=== PATIENT | female | born 1955 | race Caucasian/White ===

== ENCOUNTER 2020-05-15 01:50 | Emergency (ER) | payer OTHER ==
[2020-05-15 04:12] LABS: Absolute Lymphocytes (CBC) 1.1 K/uL (0.7-4.9); Basophils % 0.2 % (0-1.3); Hematocrit 32.8 % (36.0-45.0); Lymphocytes % 7.2 % (15.3-44.8); MPV 9.4 fL (7.6-11.3); RBC Red Blood Cell Count 3.47 M/uL (3.86-4.86)
[2020-05-15 04:24] LABS: Protime INR 0.89
[2020-05-15 04:30] LABS: ALT/SGPT 29 U/L (12-78); AST/SGOT 13 U/L (15-37); Albumin 3.1 g/dL (3.4-5.0); Alkaline Phosphatase 123 U/L (45-117); BUN Blood Urea Nitrogen 30 mg/dL (7-18); Bicarbonate 30 mmol/L (21-32); Bilirubin Direct 0.2 mg/dL (0-0.2); Bilirubin Total 0.5 mg/dL (0.2-1.0); CKMB Creatine Kinase MB < 1.0 ng/mL (0.3-3.6); Creatine Phosphokinase 13 U/L (26-192); Glucose Level 201 mg/dL (74-106); Lipase 207 U/L (73-393); Magnesium 2.2 mg/dL (1.8-2.4); Potassium 3.3 mmol/L (3.5-5.1); Protein, Total 6.5 g/dL (6.4-8.2); Sodium Level 137 mmol/L (136-145); Troponin (Emerg Dept Use Only) < 0.02 ng/mL (0.0-0.045)
[2020-05-15 04:51] LABS: Blood Morphology Comment NOTED (NOT SEEN); Platelet Estimate ADEQ; Polychromasia SLIGHT
[2020-05-15 05:42] LABS: Urine Blood NEGATIVE (NEG); Urine Glucose 2+ (NEG); Urine Protein 1+ (NEG); Urine Specific Gravity 1.015 (1.005-1.030)
--- NOTE | 2020-05-15 06:12 | ER ---
Nurse's Notes [facility] Name: Lisa Jones Age: 65 yrs Sex: Female : 1955 Arrival Date: 05/15/2020 Time: 02:04 Bed 19 Private MD: Diagnosis: Delirium Presentation: 05/15 01:50 Chief complaint: EMS states: From [facility] via [facility] for altered sf mental status. Staff at the facility report the patient "just isn't acting herself" staring this evening. Coronavirus screen: Client denies travel out of the [place] in the last 14 days. At this time, the client does not indicate any symptoms associated with coronavirus-19. The client reports previous COVID testing was negative. Ebola Screen: Patient negative for fever greater than or equal to 101.5 degrees Fahrenheit, and additional compatible Ebola Virus Disease symptoms Patient denies exposure to infectious person. Patient denies travel to an Ebola-affected area in the 21 days before illness onset. No symptoms or risks identified at this time. Initial Sepsis Screen: Does the patient meet any 2 criteria? No. Patient's initial sepsis screen is negative. Does the patient have a suspected source of infection? No. Patient's initial sepsis screen is negative. Risk Assessment: Do you want to hurt yourself or someone else? Patient reports no desire to harm self or others. Onset of symptoms was May 14, 2020. 01:50 Method Of Arrival: EMS: [facility] sf 01:50 Acuity: LORIN 3 sf Historical: - Allergies: 02:24 Heparin; sf 02:24 metformin; sf 02:24 Keflex; sf 02:24 Zosyn; sf 02:24 Sulfa (Sulfonamide Antibiotics); sf - Home Meds: 02:24 amlodipine 10 mg tab 1 tab once daily [Active]; carvedilol 6.25 mg oral tab 1 tab 2 sf times per day [Active]; dorzolamide-timolol (PF) ophthalmic ophthalmic 1 drop 2 times per day [Active]; duloxetine 30 mg oral cpDR 3 caps once daily [Active]; Fluocinolone Acetonide 0.05% oint Topical every shift [Active]; folic acid 800 mcg Oral tab 1 tab once daily [Active]; gabapentin 300 mg oral cap 2 caps 3 times per day [Active]; Humalog Pen Sub-Q 9 unit three times a day [Active]; Lantus 100 unit/mL Sub-Q soln 20 unit nightly [Active]; melatonin 5 mg Oral tab 10 mg nightly [Active]; pantoprazole 40 mg oral TbEC 1 tab once daily [Active]; Plavix 75 mg Oral tab 1 tab once daily [Active]; prednisone 20 mg Oral tab once daily [Active]; Prolensa 0.07 % ophthalmic drop 1 drop twice a day [Active]; Renvela 800 mg oral tab 2 tabs 3 times per day [Active]; tramadol 50 mg Oral tab 1 tab every 6 hours [Active]; trazodone 50 mg Oral tab 1 tab nightly [Active]; - 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 - Social history:: Smoking status: Patient denies any tobacco usage or history of. Patient/guardian denies using alcohol, street drugs, IV drugs. Screenin:50 Abuse screen: Denies threats or abuse. Denies injuries from another. Nutritional sf screening: No deficits noted. Tuberculosis screening: No symptoms or risk factors identified. Never had TB. Possible symptoms: None Risk factors: None. Fall Risk Fall in past 12 months (25 points). Secondary diagnosis (15 points) impaired mobility, IV access (20 points). Ambulatory Aid- Crutches/Cane/Walker (15 pts). Gait- Impaired (20 pts.). Mental Status- Oriented to own ability (0 pts). Total Geller Fall Scale indicates High Risk Score (45 or more points). Fall prevention measures have been instituted. Side Rails Up X 2 Placed Close to Nursing Station Frequent Obs/Assessments Occuring. Assessment: 01:50 General: Appears in no apparent distress. comfortable, Behavior is calm, cooperative, sf appropriate for age. Pain: Denies pain. Neuro: Level of Consciousness is awake, alert, obeys commands, Oriented to person, place, time, situation, Appropriate for age. Cardiovascular: No deficits noted. Patient's skin is warm and dry. Rhythm is sinus rhythm. Respiratory: No deficits noted. Airway is patent Respiratory effort is even, unlabored, Respiratory pattern is regular, symmetrical. 04:55 Reassessment: Patient appears in no apparent distress at this time. No changes from previously documented assessment. Patient and/or family updated on plan of care and expected duration. Pain level reassessed. Patient is alert, oriented x 3, equal unlabored respirations, skin warm/dry/pink. 05:56 Reassessment: Patient appears in no apparent distress at this time. No changes from sf previously documented assessment. Patient and/or family updated on plan of care and expected duration. Pain level reassessed. Patient is alert, oriented x 3, equal unlabored respirations, skin warm/dry/pink. 06:19 Reassessment: Patient and/or family updated on plan of care and expected duration. Pain sf level reassessed. Patient called out to nurses station stating she can hear people talking about her. Saying she has been with 17 men and hangs out at the corner bar. She is alert and oriented to self, place and situation, gives 2011 as year. Reoriented patient and told her I was going to call report back to the nursing facility and arrange transport. She is content with the plan. Vital Signs: 01:50 BP 157 / 71; Pulse 69; Resp 18; Temp 98.3; Pulse Ox 99% ; Weight 72.57 kg; Height 5 ft. sf 2 in. (157.48 cm); Pain 0/10; 02:00 BP 155 / 66; Pulse 64; Resp 16; Pulse Ox 98% ; sf 02:15 BP 155 / 65; Pulse 64; Pulse Ox 98% ; sf 02:45 BP 161 / 67; Pulse 67; Resp 16; Pulse Ox 98% ; sf 03:00 BP 161 / 73; Pulse 64; Pulse Ox 98% ; sf 04:00 BP 130 / 84; Pulse 65; Resp 16; Pulse Ox 98% on R/A; sf 05:00 BP 109 / 80; Pulse 70; Resp 16; Pulse Ox 97% ; sf 01:50 Body Mass Index 29.26 (72.57 kg, 157.48 cm) ED Course: 01:50 Arm band placed on right wrist. sf 01:50 Patient has correct armband on for positive identification. Bed in low position. Call light in reach. Side rails up X2. monitoring engineer on. Pulse ox on. NIBP on. Door closed. Noise minimized. Visitors limited. Lights dimmed. Warm blanket given. Verbal reassurance given. 02:04 Patient arrived in ED. cl3 02:04 Houston Hill, RN is Primary Nurse. sf 02:07 Triage completed. sf 02:10 Scott Fernandes MD is Attending Physician. tw4 02:25 CT Head Brain wo Cont Sent. sf 02:42 CT Head Brain wo Cont In Process Unspecified. EDMS 02:53 EKG done, by ED staff, reviewed by Scott Fernandes MD. sf 03:30 Missed attempt(s): 18 gauge in left antecubital area. sf 03:40 Inserted saline lock: 20 gauge in left antecubital area, using aseptic technique. sf ,using aseptic technique. by JOE Dubon with ultrasound guidance Blood collected. 04:22 Basic Metabolic Panel Sent. sf 04:30 Urine collected: straight cath specimen, clear. Speci-cath kit inserted, using sterile sf technique, 16 Fr., specimen obtained. returned clear yellow urine. Patient tolerated well. 05:19 Urine Dipstick--Ancillary (enter results) Sent. sf 05:56 Awaiting disposition. sf 06:19 No provider procedures requiring assistance completed. sf 07:04 Report given to JOE Dsouza. sf 07:32 Lianna Yanez RN is Primary Nurse. [id number] 07:40 IV discontinued, intact, bleeding controlled, No redness/swelling at site. Pressure ss dressing applied. Administered Medications: No medications were administered Outcome: 06:11 Discharge ordered by . tw4 06:29 Discharged to long-term. Report called to Laine Weber RN sf 06:29 Condition: stable 06:29 Discharge instructions given to long-term, Instructed on discharge instructions, follow up and referral plans. medication usage, Demonstrated understanding of instructions, follow-up care, medications. 07:40 Patient left the ED. ss Signatures: Dispatcher [employer] EDNC Meliza Cano RN RN ss Wadley, Terrence, MD MD [facility] Brandon Mann cl3 Houston Hill RN RN Lianna Yanez RN RN [id number] Corrections: (The following items were deleted from the chart) 02:26 01:40 Arm band placed on right wrist. sf sf 05:21 01:50 Cardiovascular: No deficits noted. Patient's skin is warm and dry. sf sf
--- NOTE | 2020-05-15 06:12 | EDPHYS ---
Physician Documentation [facility] Name: Lisa Jones Age: 65 yrs Sex: Female : 1955 Arrival Date: 05/15/2020 Time: 02:04 Bed 19 Private MD: ED Physician Scott Fernandes HPI: 05/15 04:22 This 65 yrs old Female presents to ER via EMS with complaints of Altered tw4 Mental Status. 04:22 The patient presents with decreased responsiveness. Onset: The symptoms/episode tw4 began/occurred today. Associated signs and symptoms: The patient has no apparent associated signs or symptoms. Current symptoms: In the emergency department the patient's symptoms are unchanged from the initial presentation. The patient has not experienced similar symptoms in the past. Historical: - Allergies: 02:24 Heparin; sf 02:24 metformin; sf 02:24 Keflex; sf 02:24 Zosyn; sf 02:24 Sulfa (Sulfonamide Antibiotics); sf - Home Meds: 02:24 amlodipine 10 mg tab 1 tab once daily [Active]; carvedilol 6.25 mg oral tab 1 tab 2 sf times per day [Active]; dorzolamide-timolol (PF) ophthalmic ophthalmic 1 drop 2 times per day [Active]; duloxetine 30 mg oral cpDR 3 caps once daily [Active]; Fluocinolone Acetonide 0.05% oint Topical every shift [Active]; folic acid 800 mcg Oral tab 1 tab once daily [Active]; gabapentin 300 mg oral cap 2 caps 3 times per day [Active]; Humalog Pen Sub-Q 9 unit three times a day [Active]; Lantus 100 unit/mL Sub-Q soln 20 unit nightly [Active]; melatonin 5 mg Oral tab 10 mg nightly [Active]; pantoprazole 40 mg oral TbEC 1 tab once daily [Active]; Plavix 75 mg Oral tab 1 tab once daily [Active]; prednisone 20 mg Oral tab once daily [Active]; Prolensa 0.07 % ophthalmic drop 1 drop twice a day [Active]; Renvela 800 mg oral tab 2 tabs 3 times per day [Active]; tramadol 50 mg Oral tab 1 tab every 6 hours [Active]; trazodone 50 mg Oral tab 1 tab nightly [Active]; - 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 - Social history:: Smoking status: Patient denies any tobacco usage or history of. Patient/guardian denies using alcohol, street drugs, IV drugs. ROS: 04:22 Constitutional: Negative for fever, chills, and weight loss, Eyes: Negative for injury, tw4 pain, redness, and discharge, Cardiovascular: Negative for chest pain, palpitations, and edema, Respiratory: Negative for shortness of breath, cough, wheezing, and pleuritic chest pain, Abdomen/GI: Negative for abdominal pain, nausea, vomiting, diarrhea, and constipation, Back: Negative for injury and pain, MS/Extremity: Negative for injury and deformity, Skin: Negative for injury, rash, and discoloration. 04:22 Neuro: Positive for altered mental status. Exam: 04:22 Constitutional: This is a well developed, well nourished patient who is awake, alert, tw4 and in no acute distress. Head/Face: Normocephalic, atraumatic. Chest/axilla: Normal chest wall appearance and motion. Nontender with no deformity. No lesions are appreciated. Cardiovascular: Regular rate and rhythm with a normal S1 and S2. No gallops, murmurs, or rubs. Normal PMI, no JVD. No pulse deficits. Respiratory: Lungs have equal breath sounds bilaterally, clear to auscultation and percussion. No rales, rhonchi or wheezes noted. No increased work of breathing, no retractions or nasal flaring. Abdomen/GI: Soft, non-tender, with normal bowel sounds. No distension or tympany. No guarding or rebound. No evidence of tenderness throughout. Back: No spinal tenderness. No costovertebral tenderness. Full range of motion. Skin: Warm, dry with normal turgor. Normal color with no rashes, no lesions, and no evidence of cellulitis. MS/ Extremity: Pulses equal, no cyanosis. Neurovascular intact. Full, normal range of motion. Neuro: Awake and alert, GCS 15, oriented to person, place, time, and situation. Cranial nerves II-XII grossly intact. Motor strength 5/5 in all extremities. Sensory grossly intact. Cerebellar exam normal. Normal gait. Vital Signs: 01:50 BP 157 / 71; Pulse 69; Resp 18; Temp 98.3; Pulse Ox 99% ; Weight 72.57 kg; Height 5 ft. sf 2 in. (157.48 cm); Pain 0/10; 02:00 BP 155 / 66; Pulse 64; Resp 16; Pulse Ox 98% ; sf 02:15 BP 155 / 65; Pulse 64; Pulse Ox 98% ; sf 02:45 BP 161 / 67; Pulse 67; Resp 16; Pulse Ox 98% ; sf 03:00 BP 161 / 73; Pulse 64; Pulse Ox 98% ; sf 04:00 BP 130 / 84; Pulse 65; Resp 16; Pulse Ox 98% on R/A; sf 05:00 BP 109 / 80; Pulse 70; Resp 16; Pulse Ox 97% ; sf 01:50 Body Mass Index 29.26 (72.57 kg, 157.48 cm) sf MDM: 04:22 Differential Diagnosis: CVA, hypoglycemia, intracranial bleed. Data reviewed: vital tw4 signs, nurses notes. Data reviewed: lab test result(s), radiologic studies, CT scan. Counseling: I had a detailed discussion with the patient and/or guardian regarding: the historical points, exam findings, and any diagnostic results supporting the discharge/admit diagnosis. 04:59 Patient medically screened. tw4 05:53 Data interpreted: Pulse oximetry: Interpretation: normal. tw4 06:10 Special discussion: I discussed with the patient/guardian in detail that at this point tw4 there is no indication for admission to the hospital. It is understood, however, that if the symptoms persist or worsen the patient needs to return immediately for re-evaluation. 05/15 02:10 Order name: Basic Metabolic Panel tw4 05/15 02:10 Order name: CBC with Diff; Complete Time: 04:53 tw4 05/15 04:53 Interpretation: Normal except: WBC 15.80; RBC 3.47; HGB 10.8; HCT 32.8; LYM% 7.2; HOMER% tw4 85.5; PLT 131. 05/15 02:10 Order name: Ckmb; Complete Time: 04:51 tw4 05/15 04:52 Interpretation: Within normal limits: CKMB < 1.0. tw4 05/15 02:10 Order name: CPK; Complete Time: 04:51 05/15 04:52 Interpretation: Normal except: CPK 13. 05/15 02:11 Order name: Hepatic Function; Complete Time: 04:51 05/15 04:52 Interpretation: Normal except: AST 13; ALK 123; ALB 3.1; A/G 0.9. 05/15 02:11 Order name: Lipase; Complete Time: 04:51 05/15 04:52 Interpretation: Within normal limits: LIP 207. 05/15 02:11 Order name: Magnesium; Complete Time: 04:51 05/15 04:52 Interpretation: Within normal limits: MG 2.2. 05/15 02:11 Order name: Protime (+inr); Complete Time: 04:51 05/15 04:53 Interpretation: Within normal limits: PT 10.2. 05/15 02:11 Order name: Ptt, Activated; Complete Time: 04:51 05/15 04:52 Interpretation: Abnormal: PTT 21.8. 05/15 02:11 Order name: Troponin (emerg Dept Use Only); Complete Time: 04:51 05/15 04:53 Interpretation: Within normal limits: TROPED < 0.02. 05/15 02:11 Order name: Basic Metabolic Panel; Complete Time: 04:51 EDMS 05/15 04:52 Interpretation: Normal except: K 3.3; GLUC 201; BUN 30; CRE 2.46; GFR 20. 05/15 04:13 Order name: Manual Differential; Complete Time: 04:53 EDMS 05/15 04:54 Interpretation: Normal except: LYM 9; SEGS 85. 05/15 04:48 Order name: Urine Dipstick--Ancillary (enter results) ar5 05/15 04:48 Order name: Urine Dipstick-Ancillary; Complete Time: 05:52 EDMS 05/15 02:10 Order name: CT Head Brain wo Cont 05/15 02:11 Order name: EKG; Complete Time: 02:12 05/15 02:11 Order name: Cardiac monitoring; Complete Time: 02:45 05/15 02:11 Order name: EKG - Nurse/Tech; Complete Time: 03:42 tw4 05/15 02:11 Order name: IV Saline Lock; Complete Time: 03:42 4 05/15 02:11 Order name: Labs collected and sent; Complete Time: 03:43 tw4 05/15 02:11 Order name: NPO; Complete Time: 02:25 4 05/15 02:11 Order name: O2 Per Protocol; Complete Time: 02:25 4 05/15 02:11 Order name: O2 Sat Monitoring; Complete Time: :25 4 05/15 02:11 Order name: Urine Dipstick-Ancillary (obtain specimen); Complete Time: 04:46 tw4 EC:53 Rate is 67 beats/min. Rhythm is regular. QRS Epes is Normal. ID interval is normal. QRS tw4 interval is normal. QT interval is normal. No Q waves. T waves are Normal. T waves are Peaked. No ST changes noted. Clinical impression: Normal ECG. Interpreted by me. Reviewed by me. Administered Medications: No medications were administered Disposition: 05/15/20 06:11 Discharged to Home. Impression: Delirium. - Condition is Stable. - Discharge Instructions: Delirium. - Medication Reconciliation Form, Thank You Letter, Antibiotic Education, Prescription Opioid Use, SBAR form form. - Follow up: Private Physician; When: Upon discharge from the Emergency Department; Reason: Recheck today's complaints, Continuance of care, Re-evaluation by your physician. - Problem is new. - Symptoms have improved. Signatures: Dispatcher [employer] EDDE Meliza Cano RN RN ss Scott Fernandes MD MD tw4 Houston Hill RN RN sf Corrections: (The following items were deleted from the chart) 07:40 06:11 05/15/2020 06:11 Discharged to Home. Impression: Delirium. Condition is Stable. ss Forms are Medication Reconciliation Form, Thank You Letter, Antibiotic Education, Prescription Opioid Use. Follow up: Private Physician; When: Upon discharge from the Emergency Department; Reason: Recheck today's complaints, Continuance of care, Re-evaluation by your physician. Problem is new. Symptoms have improved. tw4
[2020-05-15 08:13] VITALS: TEMP 98.3
[2020-05-15 09:00] VITALS: O2SAT 98
[2020-05-15 09:02] VITALS: BP 161/67
--- NOTE | 2020-05-15 11:01 | RAD REPORT ---
EXAM DESCRIPTION: CT - Head Brain Wo Cont - 05/15/2020 6:34 am CLINICAL HISTORY: DECLINING STATE TECHNIQUE: Contiguous axial CT images obtained through the brain without IV contrast. Coronal and sa gittal reformatted images were provided. This exam was performed according to our departmental dose-optimization program, which includes autom ated exposure control, adjustment of the mA and/or kV according to patient size and/or use of iterati ve reconstruction technique. COMPARISON: None available for comparison FINDINGS: Brain: There is mild cerebral atrophy. Bilateral periventricular and subcortical white mat ter hypodensity most likely related to chronic microvascular angiopathy. Right inferior frontal, righ t posterior parietal, right occipital and left frontal encephalomalacia compatible with remote insult . No focal mass effect. Flores-white matter differentiation is within normal limits. No hemorrhage. Ventricles: No ventriculomegaly or midline shift. Extra-axial spaces: No extra-axial collection or hemorrhage. Paranasal sinuses and mastoid air cells: Well-aerated Vessels: There is atherosclerotic disease of the internal carotid and vertebral arteries bilaterally. Bones: Unremarkable Soft tissues: Unremarkable IMPRESSION: 1. No acute hemorrhage, focal mass or acute large territory infarction. 2. Other findings as above. Electronically signed by: Dixie Leroy MD 05/15/2020 2:50 AM SWITCHBOARD MECHANIC Due to temporary technical issues with the PACS/Fluency reporting system, reports are being signed by the in house radiologists without review as a courtesy to insure prompt reporting. The interpreting radiologist is fully responsible for the content of the report.
--- NOTE | 2020-05-15 23:58 | EKG ---
Test Date: 2020-05-15 Test Time: 02:53:13 System Specialist: JORJE MEASUREMENT RESULTS: Intervals: Rate: 67 MN: 152 QRSD: 84 QT: 422 QTc: 445 [place]: P: 49 MN: 152 QRS: 38 T: 88 INTERPRETIVE STATEMENTS: Normal sinus rhythm Normal ECG No previous ECG available for comparison Electronically Signed On 05-15-20 23:57:41 IT NETWORK ENGINEER by Hill Garcia
== END 2020-05-15 07:40 | disposition home or self-care (01) ==
LOC: ER 01:50
DX: R41.0 Disorientation, unspecified (principal); E11.22 Type 2 diabetes mellitus with diabetic chronic kidney disease; N18.6 End stage renal disease; Z79.4 Long term (current) use of insulin; E78.5 Hyperlipidemia, unspecified; E03.9 Hypothyroidism, unspecified; F32.9 Major depressive disorder, single episode, unspecified; Z88.1 Allergy status to other antibiotic agents; Z88.2 Allergy status to sulfonamides; Z88.8 Allergy status to other drugs, medicaments and biological substances
CPT/HCPCS: 36415; 70450; 80048; 80076; 81003; 82550; 82553; 83690; 83735; 84484; 85025; 85610; 85730; 93005; 99284

== ENCOUNTER 2020-06-09 15:01 | Emergency (ER) | payer OTHER ==
[2020-06-09 15:44] LABS: Absolute Lymphocytes (CBC) 0.6 K/uL (0.7-4.9); Basophils % 0.3 % (0-1.3); Hematocrit 29.8 % (36.0-45.0); Lymphocytes % 7.5 % (15.3-44.8); MPV 8.4 fL (7.6-11.3); RBC Red Blood Cell Count 3.09 M/uL (3.86-4.86)
[2020-06-09] MEDS ORDERED: ONDANSETRON 4 MG/2 ML VIAL ONE (15:48)
[2020-06-09] MEDS ORDERED: MORPHINE 4 MG/ML SYR ONE (15:48)
[2020-06-09 15:52] LABS: Potassium 3.8 mmol/L (3.5-5.1)
--- NOTE | 2020-06-09 17:24 | RAD REPORT ---
EXAM DESCRIPTION: RAD - Pelvis - 06/09/2020 5:13 pm CLINICAL HISTORY: fall Fall, trauma, pain COMPARISON: No comparisons FINDINGS: The bones are osteopenic. This limits sensitivity of the radiograph. No fracture or disloc ation is evident.
--- NOTE | 2020-06-09 17:26 | RAD REPORT ---
EXAM DESCRIPTION: RAD - Femur Left - 06/09/2020 5:13 pm CLINICAL HISTORY: PAIN Fall, pain COMPARISON: None FINDINGS: Left femur and left tibia/ fibula multiple projections performed [id number] amputation noted. Mildly angulated impacted fracture of the distal metaphysis of the l eft femur is present. Vascular atherosclerosis.
--- NOTE | 2020-06-09 17:27 | RAD REPORT ---
EXAM DESCRIPTION: RAD - Femur Right - 06/09/2020 5:13 pm CLINICAL HISTORY: PAIN COMPARISON: No comparisons FINDINGS: Above the knee amputation is noted. The bones are quite demineralized. No fracture seen. V ascular calcification evident.
--- NOTE | 2020-06-09 17:44 | EDPHYS ---
Physician Documentation [facility] Name: Lisa Jones Age: 65 yrs Sex: Female : 1955 Arrival Date: 06/09/2020 Time: 15:13 Bed 23 Private MD: ED Physician Levi Casiano HPI: 06/09 15:25 This 65 yrs old Female presents to ER via EMS with complaints of Fall Injury. cp 15:25 Details of fall: The patient fell from a height, bed. Onset: The symptoms/episode cp began/occurred this morning. Associated injuries: The patient sustained left lower extremity. 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 - Social history:: Smoking status: unknown. ROS: 15:30 MS/extremity: Positive for injury or acute deformity, pain, of the left lower extremity.cp 15:30 Constitutional: Negative for fever. cp 15:30 Neck: Negative for pain with movement, pain at rest, stiffness. 15:30 Cardiovascular: Negative for chest pain. 15:30 Respiratory: Negative for shortness of breath. 15:30 Abdomen/GI: Negative for abdominal pain. 15:30 Neuro: Negative for altered mental status, headache, loss of consciousness, syncope. 15:30 All other systems are negative. Exam: 15:35 Constitutional: The patient appears in no acute distress, alert, awake, cp non-diaphoretic, non-toxic, well developed, well nourished. 15:35 Head/Face: Normocephalic, atraumatic. cp 15:35 Eyes: Periorbital structures: appear normal, Conjunctiva: normal, no exudate, no injection, Lids and lashes: appear normal, bilaterally. 15:35 Neck: C-spine: vertebral tenderness, is not appreciated, crepitus, is not appreciated, ROM/movement: is normal, is supple, without pain, no range of motions limitations. 15:35 Chest/axilla: Inspection: normal, Palpation: is normal, no crepitus, no tenderness. 15:35 Cardiovascular: Rate: normal, Rhythm: regular. 15:35 Respiratory: the patient does not display signs of respiratory distress, Respirations: normal, no use of accessory muscles, no retractions, labored breathing, is not present, Breath sounds: are clear throughout, no decreased breath sounds. 15:35 Abdomen/GI: Inspection: abdomen appears normal, Palpation: abdomen is soft and non-tender, in all quadrants. 15:35 Musculoskeletal/extremity: Extremities: grossly normal except: noted in the left knee: pain, swelling, tenderness, left below the knee amputation, noted in the right leg: no evidence of pain, right above the knee amputation. Vital Signs: 15:27 BP 145 / 68; Pulse 68; Temp 97.6; Pulse Ox 98% ; dh4 16:10 BP 102 / 85; Pulse 61; Resp 16; Pulse Ox 95% on R/A; iw 19:42 BP 128 / 70; Pulse 89; Resp 16; Pulse Ox 100% on 2 lpm NC; iw 20:49 BP 133 / 71; Pulse 58; Resp 19; Temp 97.8; Pulse Ox 96% ; Pain 0/10; fu Procedures: 18:00 Splinting: Splint applied to left leg using knee immobilizer, applied by nurse. cp Examined by me, post splint application: neurovascular intact, Patient tolerated well. MDM: 15:17 Patient medically screened. cp 16:00 Differential diagnosis: closed head injury, contusion, fracture, multiple trauma. cp 17:41 Data reviewed: vital signs, nurses notes, lab test result(s), radiologic studies, plain cp films. 17:41 Test interpretation: by ED physician or midlevel provider: plain radiologic studies. cp Counseling: I had a detailed discussion with the patient and/or guardian regarding: the historical points, exam findings, and any diagnostic results supporting the discharge/admit diagnosis, lab results, radiology results, to return to the emergency department if symptoms worsen or persist or if there are any questions or concerns that arise at home. Response to treatment: Pain markedly improved. 06/09 15:17 Order name: Basic Metabolic Panel; Complete Time: 16:28 cp 06/09 16:29 Interpretation: Normal except: GLUC 199; BUN 32; CRE 2.56; GFR 19. cp 06/09 15:17 Order name: CBC with Diff; Complete Time: 16:28 cp 06/09 19:22 Interpretation: Normal except: RBC 3.09; HGB 9.8; HCT 29.8; PLT 71; RDW 16.5; HOMER% cp 89.6; LYM% 7.5; MN% 2.5; LYMA 0.6. 06/09 15:17 Order name: XRAY Pelvis; Complete Time: 19:21 cp 06/09 15:17 Order name: XRAY Femur LEFT; Complete Time: 19:21 cp 06/09 15:17 Order name: Type And Screen; Complete Time: 16:28 cp 06/09 18:59 Order name: Glucose, Ancillary Testing; Complete Time: 19:21 EDMS 06/09 15:17 Order name: IV; Complete Time: 15:36 cp 06/09 15:17 Order name: XRAY Tib Fib LEFT cp 06/09 15:17 Order name: XRAY Femur RIGHT; Complete Time: 19:21 cp 06/09 15:17 Order name: Labs collected and sent; Complete Time: 15:36 cp 06/09 16:29 Order name: Knee Immobilizer; Complete Time: 16:43 cp Administered Medications: 15:35 Drug: morphine 4 mg Route: IVP; Site: right antecubital; iw 15:36 Drug: Zofran (Ondansetron) 4 mg Route: IVP; Site: right antecubital; iw 19:39 Drug: NARcan 0.4 mg Route: IVP; Site: right antecubital; iw 20:58 Follow up: Response: Marked relief of symptoms fu Disposition: 21:15 Chart complete. 06/10 01:21 Co-signature as Attending Physician, Levi Casiano MD I agree with the assessment and odalys plan of care. Disposition: 06/09/20 17:42 Discharged to Home. Impression: Nondisplaced Distal Left Femur Fracture. - Condition is Stable. - Discharge Instructions: Knee Fracture, Adult. - Prescriptions for Tylenol- Codeine #3 300-30 mg Oral Tablet - take 2 tablets by ORAL route every 4-6 hours As needed; 20 tablet. - SBAR form, Medication Reconciliation Form, Thank You Letter, Antibiotic Education, Prescription Opioid Use form. - Follow up: Sahil Mcgee MD; When: 2 - 3 days; Reason: left distal femur fracture. - Problem is new. - Symptoms have improved. Signatures: Dispatcher [employer] EDLevi Kerr MD MD cha Williams, Irene, RN RN Opal Lynch RN RN aa5 Levi Sewell, PA PA Fredy Medel RN RN fu Corrections: (The following items were deleted from the chart) 06/09 21:05 17:42 06/09/2020 17:42 Discharged to Home. Impression: Nondisplaced Distal Left Femur fu Fracture. Condition is Stable. Forms are Medication Reconciliation Form, Thank You Letter, Antibiotic Education, Prescription Opioid Use. Follow up: Sahil Mcgee; When: 2 - 3 days; Reason: left distal femur fracture. Problem is new. Symptoms have improved. cp
--- NOTE | 2020-06-09 17:44 | ER ---
Nurse's Notes [facility] Name: Lisa Jones Age: 65 yrs Sex: Female : 1955 Arrival Date: 06/09/2020 Time: 15:13 Bed 23 Private MD: Diagnosis: Nondisplaced Distal Left Femur Fracture Presentation: 06/09 15:13 Chief complaint: EMS states: fell out of bed this morning around 0730, pt c/o left knee aa5 pain, x-rays were completed at [facility] and results are as follow: fracture involving left distal femur with displacement. Pt is A\T\O x 2-3 which is baseline as [facility]. Care prior to arrival: None. Mechanism of Injury: Fall out of bed. Trauma event details: Injury occurred in the [facility], Injury occurred: at home. 15:13 Acuity: LORIN 3 aa5 15:13 Method Of Arrival: EMS: [facility] aa5 15:39 Coronavirus screen: At this time, the client does not indicate any symptoms associated iw with coronavirus-19. Ebola Screen: Patient negative for fever greater than or equal to 101.5 degrees Fahrenheit, and additional compatible Ebola Virus Disease symptoms Patient denies exposure to infectious person. Patient denies travel to an Ebola-affected area in the 21 days before illness onset. No symptoms or risks identified at this time. Initial Sepsis Screen: Does the patient meet any 2 criteria? No. Patient's initial sepsis screen is negative. Does the patient have a suspected source of infection? No. Patient's initial sepsis screen is negative. Risk Assessment: Do you want to hurt yourself or someone else? Patient reports no desire to harm self or others. Onset of symptoms was June 09, 2020. 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 - Social history:: Smoking status: unknown. Screenin:14 Abuse screen: Denies threats or abuse. Denies injuries from another. Tuberculosis iw screening: No symptoms or risk factors identified. 16:15 Nutritional screening: No deficits noted. Fall Risk Fall in past 12 months (25 points). iw Primary Survey: 15:20 NO uncontrolled hemorrhage observed. A: The patient is alert. Airway: patent. iw Breathing/Chest: Respiratory pattern: regular, Respiratory effort: spontaneous, unlabored. Circulation: Skin color: pink. Disability Alert. Exposure/Environment: All clothing and personal items were removed. Forensic evidence collection is not deemed to be indicated at this time. Items placed in patient belonging bag. Secondary Survey: 16:13 Musculoskeletal: Swelling present in left quadriceps and left knee. iw Assessment: 15:20 General: Appears in no apparent distress. Behavior is calm, cooperative. Pain: iw Complains of pain in left leg. Neuro: Level of Consciousness is awake, alert, obeys commands, Oriented to person, place, time, Moves all extremities. Respiratory: Respiratory effort is even, unlabored, Respiratory pattern is regular. Derm: Skin is intact, is fragile. Musculoskeletal: Range of motion: limited in left hip and left knee pt has BKA to left leg, AKA to right leg. 15:39 Reassessment: Patient appears in no apparent distress at this time. pt has been iw medicated with morphine. zofran, awaiting xrays. 17:56 Reassessment: Report given to Nicole (nurse at [facility]). Awaiting aa5 transport [facility]. . 18:43 Reassessment: pt difficult to arouse, BS was 179, respirations even and unlabored, 100% iw on 2 L NC, pt wakes up to painful stimuli, Levi Page at bedside to assess, will hold pt until more responsive. 19:41 Reassessment: administered 0.4 mg Narcan, pt still drowsy but awakens to verbal stimuli.iw 20:59 Reassessment: patient is awake responsive to verbal stimuli. O2 support discontinued, fu tolerating on room air O2 sat at 96%. 21:02 Reassessment: patient pick up attendant by [facility], report given by day shift nurse. fu patient left on stretcher. [place] [facility] Vital Signs: 15:27 BP 145 / 68; Pulse 68; Temp 97.6; Pulse Ox 98% ; dh4 16:10 BP 102 / 85; Pulse 61; Resp 16; Pulse Ox 95% on R/A; iw 19:42 BP 128 / 70; Pulse 89; Resp 16; Pulse Ox 100% on 2 lpm NC; iw 20:49 BP 133 / 71; Pulse 58; Resp 19; Temp 97.8; Pulse Ox 96% ; Pain 0/10; fu ED Course: 15:13 Patient arrived in ED. aa5 15:13 Arm band placed on. aa5 15:15 Levi Sewell PA is PHCP. cp 15:15 Levi Casiano MD is Attending Physician. cp 15:18 Triage completed. aa5 15:18 Charis Tyler, JOE is Primary Nurse. iw 15:38 Initial lab(s) drawn, by ia, sent to lab. Inserted saline lock: 24 gauge in right iw antecubital area, using aseptic technique. Blood collected. 16:00 Patient has correct armband on for positive identification. iw 17:13 XRAY Pelvis In Process Unspecified. EDMS 17:13 XRAY Femur LEFT In Process Unspecified. EDMS 17:13 XRAY Tib Fib LEFT In Process Unspecified. EDMS 17:13 XRAY Femur RIGHT In Process Unspecified. EDMS 17:41 Sahil Mcgee MD is Referral Physician. cp 20:00 No provider procedures requiring assistance completed. fu 20:50 IV discontinued, bleeding controlled, Pressure dressing applied. fu Administered Medications: 15:35 Drug: morphine 4 mg Route: IVP; Site: right antecubital; iw 15:36 Drug: Zofran (Ondansetron) 4 mg Route: IVP; Site: right antecubital; iw 19:39 Drug: NARcan 0.4 mg Route: IVP; Site: right antecubital; iw 20:58 Follow up: Response: Marked relief of symptoms fu Outcome: 17:42 Discharge ordered by MD. cp 21:02 [facility]charged to [facility]. fu 21:02 Condition: stable 21:02 Discharge instructions given to patient, Instructed on discharge instructions. 21:05 Patient left the ED. fu Signatures: Dispatcher [employer] Charis Ornelas, RN Opal aRmachandran RN RN aa5 Levi Sewell PA PA cp Umadhay, Felix, RN RN Benjamin Barba [facility]
[2020-06-09] MEDS ORDERED: NALOXONE 0.4 MG/ML VIAL ONE (19:53)
[2020-06-09 21:14] VITALS: BP 133/71; TEMP 97.8; O2SAT 96
--- NOTE | 2020-06-11 10:58 | RAD REPORT ---
EXAM DESCRIPTION: RAD - Tib Fib Left - 06/09/2020 5:13 pm CLINICAL HISTORY: PAIN Fall, pain COMPARISON: None FINDINGS: Left femur and left tibia/ fibula multiple projections performed [id number] amputation noted. Mildly angulated impacted fracture of the distal metaphysis of the l eft femur is present. Vascular atherosclerosis.
== END 2020-06-09 21:05 | disposition home or self-care (01) ==
LOC: ER 15:01
PROC: 2W3MX1Z Immobilization of Left Lower Extremity using Splint (ICD-10-PCS; principal; 2020-06-09)
DX: S72.402A Unspecified fracture of lower end of left femur, initial encounter for closed fracture (principal); W06.XXXA Fall from bed, initial encounter; Y93.9 Activity, unspecified; Y92.9 Unspecified place or not applicable; E11.22 Type 2 diabetes mellitus with diabetic chronic kidney disease; N18.6 End stage renal disease; Z88.1 Allergy status to other antibiotic agents; Z88.2 Allergy status to sulfonamides; Z88.8 Allergy status to other drugs, medicaments and biological substances; Z99.2 Dependence on renal dialysis; Z89.611 Acquired absence of right leg above knee; Z89.512 Acquired absence of left leg below knee
CPT/HCPCS: 85025; 80048; 36415; 86900; 86850; 86901; 82947; 72170; 73552 ×2; 73590; 96375; 96374; 99285; 29505; J2310; J2405

== ENCOUNTER 2020-07-06 12:13 | Observation (INO) | payer OTHER ==
[2020-07-06 13:57] LABS: Absolute Lymphocytes (CBC) 1.2 K/uL (0.7-4.9); Basophils % 0.6 % (0-1.3); Hematocrit 28.5 % (36.0-45.0); Lymphocytes % 20.3 % (15.3-44.8); MPV 7.9 fL (7.6-11.3); RBC Red Blood Cell Count 2.97 M/uL (3.86-4.86)
[2020-07-06 14:31] LABS: Albumin 2.8 g/dL (3.4-5.0); Bilirubin Direct 0.2 mg/dL (0-0.2); Bilirubin Total 0.7 mg/dL (0.2-1.0); Magnesium 2.5 mg/dL (1.8-2.4); Potassium 3.5 mmol/L (3.5-5.1)
[2020-07-06 14:33] LABS: Blood Morphology Comment NOT SEEN (NOT SEEN); Platelet Estimate DECR; White Blood Cell Scan OK (OK)
--- NOTE | 2020-07-06 15:51 | EDPHYS ---
Physician Documentation [facility] Name: Lisa Jones Age: 65 yrs Sex: Female : 1955 Arrival Date: 07/06/2020 Time: 12:16 Bed 25 Private MD: ED Physician Scott Fernandes HPI: 07/06 12:25 This 65 yrs old Female presents to ER via EMS with complaints of Altered cp Mental Status. 12:25 The patient presents with agitation. cp 12:25 Onset: The symptoms/episode began/occurred today. Possible causes: missed dialysis. cp Current symptoms: In the emergency department the patient's symptoms are unchanged from the initial presentation. Patient's baseline: Neuro: orientated to person, place, Motor: no deficits, Ambulation: unable to walk, uses wheelchair, Speech: normal. [facility] is resident of [facility] who reports patient has refused dialysis for past 1 week. Reportedly has been agitated and confused today and requesting dialysis. Historical: - Allergies: 12:24 Heparin; iw 12:24 Keflex; iw 12:24 metformin; iw 12:24 Sulfa (Sulfonamide Antibiotics); iw 12:24 Zosyn; iw - Home Meds: 12:31 amlodipine 10 mg tab 1 tab once daily [Active]; carvedilol 6.25 mg Oral tab 1 tab 2 iw times per day [Active]; dorzolamide-timolol (PF) ophthalmic ophthalmic 1 drop 2 times per day [Active]; duloxetine 60 mg oral cpDR twice a day [Active]; Fluocinolone Acetonide 0.05% Topical once daily [Active]; folic acid 800 mcg Oral tab 1 tab once daily [Active]; gabapentin 600 mg oral tab 3 times per day [Active]; Lantus Solostar 100 unit/mL (3 mL) subcutaneous inpn 20 unit nightly [Active]; melatonin 10 mg oral tab nightly [Active]; pantoprazole 40 mg Oral TbEC 1 tab once daily [Active]; Plavix 75 mg Oral tab 1 tab once daily [Active]; prednisone 10 mg oral tab once daily [Active]; Prolensa 0.07 % ophthalmic drop 1 drop twice a day [Active]; Renvela 800 mg Oral tab 2 tabs three times a day [Active]; Seroquel 25 mg Oral tab 1 tab 2 times per day [Active]; tramadol 50 mg Oral tab 1 tab every 4-6 hours [Active]; trazodone 50 mg Oral tab 1 tab nightly [Active]; - PMHx: 12:24 Anemia; Depression; Diabetes - IDDM; Dialysis; ESRD; GERD; Hyperlipidemia; iw Hypothyroidism; Psychotic disorder; 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 - Social history:: Smoking status: Smoking status: unknown. ROS: 12:30 Constitutional: Negative for fever, poor PO intake. cp 12:30 Cardiovascular: Negative for chest pain. 12:30 Respiratory: Negative for cough, wheezing. 12:30 Abdomen/GI: Negative for abdominal pain, nausea, vomiting, and diarrhea. 12:30 Neuro: Negative for altered mental status, headache. Exam: 12:35 Constitutional: The patient appears in no acute distress, alert, awake, cp non-diaphoretic, non-toxic, well developed, well nourished. 12:35 Head/Face: Normocephalic, atraumatic. cp 12:35 Eyes: Periorbital structures: appear normal, Conjunctiva: normal, no exudate, no injection, Lids and lashes: appear normal, bilaterally. 12:35 ENT: External ear(s): are unremarkable, Nose: is normal, Posterior pharynx: Airway: no evidence of obstruction, patent. 12:35 Chest/axilla: Inspection: normal, Palpation: is normal, no crepitus, no tenderness. 12:35 Cardiovascular: Rate: normal, Rhythm: regular. 12:35 Respiratory: the patient does not display signs of respiratory distress, Respirations: normal, no use of accessory muscles, no retractions, labored breathing, is not present, Breath sounds: decreased breath sounds, are not appreciated, wheezing: is not appreciated. 12:35 Abdomen/GI: Inspection: abdomen appears normal, Palpation: abdomen is soft and non-tender, in all quadrants. 12:35 Musculoskeletal/extremity: bilateral lower extremity amputations. 12:35 Neuro: Orientation: to person, place, situation, Mentation: able to follow commands. 13:22 ECG was reviewed by the Attending Physician. cp Vital Signs: 12:24 BP 125 / 82; Pulse 96; Resp 20; Temp 98.2; Pulse Ox 96% on R/A; Pain 10/10; zb 15:55 BP 93 / 76; Pulse 96; Resp 18; Pulse Ox 96% on R/A; zb 16:36 BP 109 / 78; Pulse 92; Resp 18; Pulse Ox 96% on R/A; zb 17:34 BP 147 / 80; Pulse 96; Resp 16; Pulse Ox 93% on R/A; zb 18:56 BP 135 / 98; Pulse 95; Resp 18; Pulse Ox 95% on R/A; zb MDM: 12:19 Patient medically screened. cp 12:30 Differential Diagnosis: electrolyte abnormality, sepsis. cp 14:40 Data reviewed: vital signs, nurses notes, lab test result(s). cp 14:40 Test interpretation: by ED physician or midlevel provider: ECG. cp 15:30 Physician consultation: Harry Haque DO was called at 14:45, was contacted at 15:30, cp regarding patient's condition, requests patient be admitted to services of hospitalist fo dialysis treatment. 15:45 Physician consultation: Pamela Silveira MD was called at 15:45, was contacted at 15:45, cp regarding admission, to the telemetry unit. patient's condition. 07/06 12:18 Order name: Basic Metabolic Panel 07/06 12:18 Order name: CBC with Diff; Complete Time: 15:25 07/06 14:15 Interpretation: Normal except: RBC 2.97; HGB 9.5; HCT 28.5; PLT 96; RDW 15.5. cp 07/06 12:18 Order name: Hepatic Function cp 07/06 12:18 Order name: Lipase; Complete Time: 14:33 cp 07/06 12:18 Order name: Magnesium; Complete Time: 14:33 cp 07/06 12:19 Order name: Basic Metabolic Panel; Complete Time: 14:33 EDMS 07/06 14:33 Interpretation: Normal except: CL 109; BUN 42; CRE 3.68; GFR 12. cp 07/06 12:18 Order name: EKG; Complete Time: 12:19 cp 07/06 12:19 Order name: Liver (Hepatic) Function; Complete Time: 14:33 EDMS 07/06 14:33 Interpretation: Normal except: AST 12; ALK 147; TP 6.0; ALB 2.8; A/G 0.9. cp 07/06 14:00 Order name: SARS-COV-2 RT PCR; Complete Time: 14:15 EDCO 07/06 14:33 Order name: CBC Smear Scan; Complete Time: 15:25 EDCO 07/06 16:12 Order name: Diet Renal; Complete Time: 16:13 jd3 07/06 16:50 Order name: Troponin I EDCO 07/06 16:50 Order name: Troponin I EDCO 07/06 12:18 Order name: IV Saline Lock; Complete Time: 14:01 cp 07/06 12:18 Order name: Labs collected and sent; Complete Time: 14:01 cp 07/06 12:18 Order name: EKG - Nurse/Tech; Complete Time: 13:24 cp 07/06 16:50 Order name: CONS Physician Consult EDCO EC:22 Rate is 96 beats/min. Rhythm is regular. ID interval is normal. QRS interval is normal. cp QT interval is normal. Interpreted by me. Reviewed by me. Administered Medications: No medications were administered Disposition: 16:00 Chart complete. cp Disposition: 07/06/20 15:50 Hospitalization ordered by Pamela Silveira for Observation. Preliminary diagnosis is End stage renal disease. - Bed requested for Telemetry/MedSurg (observation). - Status is Observation. zb - Condition is Stable. - Problem is chronic. - Symptoms are unchanged. Addendum: 07/11/2020 10:09 Co-signature as Attending Physician, Scott Fernandes MD I agree with the assessment and t w4 plan of care. Signatures: Dispatcher [employer] [facility] Sheila Chappell RN RN dw Williams, Irene, RN RN iw Page, Corey, PA PA Scott Fernandes MD MD tw4 Celia Retana RN RN zb Corrections: (The following items were deleted from the chart) 07/06 13:13 12:46 CORONAVIRUS+MR.LAB.BRZ ordered. [facility] 17:47 15:50 Hospitalization Ordered by Pamela Silveira MD for Observation. Preliminary dw diagnosis is End stage renal disease. Bed requested for Telemetry/MedSurg (observation). Status is Observation. Condition is Stable. Problem is chronic. Symptoms are unchanged. cp 20:26 17:47 07/06/2020 15:50 Hospitalization Ordered by Pamela Silveira MD for Observation. zb Preliminary diagnosis is End stage renal disease. Bed requested for Telemetry/MedSurg (observation). Status is Observation. Condition is Stable. Problem is chronic. Symptoms are unchanged. dw
--- NOTE | 2020-07-06 15:51 | ER ---
Nurse's Notes [facility] Name: Lisa Jones Age: 65 yrs Sex: Female : 1955 Arrival Date: 07/06/2020 Time: 12:16 Bed 25 Private MD: Diagnosis: End stage renal disease Presentation: 07/06 12:16 Chief complaint: EMS states: pt missed dialysis X 1 week, has been confused and iw combative , pt now agrees to have dialysis, normally has dialysis MWF, see Dr. Haque , pt is A\T\O X 3. Coronavirus screen: At this time, the client does not indicate any symptoms associated with coronavirus-19. Ebola Screen: Patient negative for fever greater than or equal to 101.5 degrees Fahrenheit, and additional compatible Ebola Virus Disease symptoms Patient denies exposure to infectious person. Patient denies travel to an Ebola-affected area in the 21 days before illness onset. No symptoms or risks identified at this time. Initial Sepsis Screen: Does the patient meet any 2 criteria? No. Patient's initial sepsis screen is negative. Does the patient have a suspected source of infection? No. Patient's initial sepsis screen is negative. Risk Assessment: Do you want to hurt yourself or someone else? Patient reports no desire to harm self or others. Onset of symptoms was June 29, 2020. 12:16 Method Of Arrival: EMS: [facility] iw 12:16 Acuity: LORIN 3 iw Historical: - Allergies: 12:24 Heparin; iw 12:24 Keflex; iw 12:24 metformin; iw 12:24 Sulfa (Sulfonamide Antibiotics); iw 12:24 Zosyn; iw - Home Meds: 12:31 amlodipine 10 mg tab 1 tab once daily [Active]; carvedilol 6.25 mg Oral tab 1 tab 2 iw times per day [Active]; dorzolamide-timolol (PF) ophthalmic ophthalmic 1 drop 2 times per day [Active]; duloxetine 60 mg oral cpDR twice a day [Active]; Fluocinolone Acetonide 0.05% Topical once daily [Active]; folic acid 800 mcg Oral tab 1 tab once daily [Active]; gabapentin 600 mg oral tab 3 times per day [Active]; Lantus Solostar 100 unit/mL (3 mL) subcutaneous inpn 20 unit nightly [Active]; melatonin 10 mg oral tab nightly [Active]; pantoprazole 40 mg Oral TbEC 1 tab once daily [Active]; Plavix 75 mg Oral tab 1 tab once daily [Active]; prednisone 10 mg oral tab once daily [Active]; Prolensa 0.07 % ophthalmic drop 1 drop twice a day [Active]; Renvela 800 mg Oral tab 2 tabs three times a day [Active]; Seroquel 25 mg Oral tab 1 tab 2 times per day [Active]; tramadol 50 mg Oral tab 1 tab every 4-6 hours [Active]; trazodone 50 mg Oral tab 1 tab nightly [Active]; - PMHx: 12:24 Anemia; Depression; Diabetes - IDDM; Dialysis; ESRD; GERD; Hyperlipidemia; iw Hypothyroidism; Psychotic disorder; 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 - Social history:: Smoking status: Smoking status: unknown. Screenin:23 Abuse screen: Denies threats or abuse. Denies injuries from another. Nutritional zb screening: No deficits noted. Tuberculosis screening: No symptoms or risk factors identified. Fall Risk Fall in past 12 months (25 points). Secondary diagnosis (15 points) impaired mobility, IV access (20 points). Ambulatory Aid- None/Bed Rest/Nurse Assist (0 pts). Gait- Impaired (20 pts.). Mental Status- Overestimates/Forgets Limitations (15 pts.). Total Geller Fall Scale indicates High Risk Score (45 or more points). Fall prevention measures have been instituted. Side Rails Up X 2 Placed Close to Nursing Station Frequent Obs/Assessments Occuring As available patient and family educated on Fall Prevention Program and Strategies. Assessment: 12:19 General: Appears in no apparent distress. uncomfortable, Behavior is cooperative. Pain: zb Complains of pain in right leg and left leg Pain currently is 10 out of 10 on a pain scale. Neuro: Level of Consciousness is awake, alert, confused, Oriented to person, place. Cardiovascular: Capillary refill < 3 seconds Patient's skin is warm and dry. Cardiovascular: Denies shortness of breath, Heart tones S1 S2 present Respiratory: Airway is patent Respiratory effort is even, unlabored, Respiratory pattern is regular, symmetrical, Breath sounds with crackles in right upper lobe and right middle lobe. GI: Abdomen is round right upper chest catheter for dialysis. :. Derm: Skin is intact, Skin is normal, Skin temperature is warm. Musculoskeletal: Amputation of right leg and left leg. Range of motion: intact in bilateral arms left knee immobilizer present. 13:24 Reassessment: Patient appears in no apparent distress at this time. Patient and/or zb family updated on plan of care and expected duration. Pain level reassessed. Patient is alert, oriented x 3, equal unlabored respirations, skin warm/dry/pink. 14:23 Reassessment: Patient appears in no apparent distress at this time. patient remains zb confused talking to herself and answering her own question. when asked what year patient states it 2009. 15:03 Reassessment: Reassessment: patient remains confused. states that she is ready to go zb home. and notes that the trash can is a refrigerator. 15:55 Reassessment: ecp at bedside. zb 16:36 Reassessment: Patient appears in no apparent distress at this time. Patient and/or zb family updated on plan of care and expected duration. Pain level reassessed. patient appears to be resting at this time. 17:32 Reassessment: hospitalist at bedside. zb Vital Signs: 12:24 BP 125 / 82; Pulse 96; Resp 20; Temp 98.2; Pulse Ox 96% on R/A; Pain 10/10; zb 15:55 BP 93 / 76; Pulse 96; Resp 18; Pulse Ox 96% on R/A; zb 16:36 BP 109 / 78; Pulse 92; Resp 18; Pulse Ox 96% on R/A; zb 17:34 BP 147 / 80; Pulse 96; Resp 16; Pulse Ox 93% on R/A; zb 18:56 BP 135 / 98; Pulse 95; Resp 18; Pulse Ox 95% on R/A; zb ED Course: 12:16 Patient arrived in ED. am2 12:18 Levi Sewell PA is PHCP. cp 12:18 Scott Fernandes MD is Attending Physician. cp 12:19 Celia Retana RN is Primary Nurse. zb 12:21 Triage completed. iw 12:23 Patient has correct armband on for positive identification. Bed in low position. Call zb light in reach. Side rails up X 1. Pulse ox on. NIBP on. Door closed. Noise minimized. Warm blanket given. 12:23 Arm band placed on. zb 15:00 called and left message with Dr. Haque to call Levi Bashir regarding his patient. eb 15:05 Inserted saline lock: 22 gauge in left forearm, using aseptic technique. ,using aseptic zb technique. preformed by JOE duckworth Blood collected. 15:49 Pamela Silveira MD is Hospitalizing Provider. cp Administered Medications: No medications were administered Outcome: 15:50 Decision to Hospitalize by Provider. cp 19:52 Admitted to Med/surg room 215, with chart, Report called to JOE Cano lp1 19:52 Condition: stable 20:26 Patient left the ED. zb Signatures: Charis Tyler RN JOE iw Alma Krishna RN RN lp1 Levi Sewell PA PA cp Ritika Andujar Elizabeth eb Brown, Zipporah, RN RN zb Corrections: (The following items were deleted from the chart) 15:04 14:01 Reassessment: zdavid zb
[2020-07-06] MEDS ORDERED: ALBUTEROL 2.5 MG/3 ML NEB SOL NEB PRN (16:46)
[2020-07-06] MEDS ORDERED: MORPHINE 2 MG/ML SYR IV PRN (16:46)
[2020-07-06] MEDS ORDERED: ONDANSETRON 4 MG/2 ML VIAL IV PRN (16:46)
--- NOTE | 2020-07-06 16:59 | P.HP ---
Certification for Inpatient Patient admitted to: Observation With expected LOS: <2 Midnights Patient will require the following post-hospital care: None Practitioner: I am a practitioner with admitting privileges, knowledge of patient current condition, hospital course, and medical plan of care. Services: Services provided to patient in accordance with Admission requirements found in Title 42 Section 412.3 of the Code of Federal Regulations Patient History Date of Service: 07/06/20 Reason for admission: NEED FOR DIALYSIS History of Present Illness: 65-year-old usp patient with history of depression, ESRD on hemodialysis follows with Dr. Kraft presented after refusing dialysis for a week but now agreeable to dialysis. She was initially reportedly combative and confused . Nephrology has been consulted and will be starting her back on dialysis tonight . She has been admitted for observation . She denies any symptoms at this time except for fatty. She denies any cough, shortness of breath - Past Medical/Surgical History -: Anemia; Depression; Diabetes - IDDM; Dialysis; ESRD; GERD; Hyperlipidemi -: b/l BKA - Social History Counseled patient to stop smoking for: less than 10 minutes Smoking therapy provided: No Patient receptive to therapy: No Alcohol use: No CD- Drugs: No Caffeine use: No Place of Residence: [place] Review of Systems is unable to be obtained Physical Examination - Physical Exam General: Alert, In no apparent distress, Oriented x3, Confused HEENT: Atraumatic, Normocephalic, PERRLA Neck: Supple, 2+ carotid pulse no bruit, JVD not distended Respiratory: Diminished, Crackles/rales Cardiovascular: Regular rate/rhythm, Normal S1 S2 Gastrointestinal: Normal bowel sounds, Soft and benign, Non-distended Musculoskeletal: No clubbing, No swelling, Other (b/l BKA) Neurological: Normal speech - Studies Laboratory Data (last 24 hrs) 07/06/20 13:50: WBC 5.90, Hgb 9.5 L, Hct 28.5 L, Plt Count 96 L 07/06/20 13:50: Sodium 144, Potassium 3.5, BUN 42 H, Creatinine 3.68 H, Glucose 85, Magnesium 2.5 H, Total Bilirubin 0.7, AST 12 L, ALT 13, Alkaline Phosphatase 147 H, Lipase 29 L Imagings Data: CXR - mild pulmonary edema Assessment and Plan - Problems (Diagnosis) (1) ESRD (end stage renal disease) on dialysis Current Visit: Yes Status: Acute (2) Diabetes Current Visit: Yes Status: Acute (3) HTN (hypertension) Current Visit: Yes Status: Acute - Advance Directives Does patient have a Living Will: No Does patient have a Durable POA for Healthcare: No Physician Review: Patient Assessed, Agree with Above Assessment and Plan Physician Review Additional Text: Impression/plan ESRD-resume hemodialysis today Might need repeat HD in a.m. although creatinine mildly elevated. 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
[2020-07-06] MEDS ORDERED: GLUCAGON 1 MG/VIAL IM PRN (17:05)
[2020-07-06] MEDS ORDERED: HYDRALAZINE HCL 20 MG/ML VIAL IV PRN (17:05)
[2020-07-06] MEDS ORDERED: D50W 25 GM/50 ML VIAL IV PRN (17:50)
[2020-07-06] MEDS: INSULIN -REGULAR HUMAN 50 UNIT/0.5 ML ML SQ SCH (21:00)
[2020-07-06 21:59] VITALS: BMI 28.0
--- NOTE | 2020-07-06 22:04 | P.CNS ---
Date of Consult: 07/06/20 Reason for Consult: ESRD Requesting Physician: Pamela Silveira Chief Complaint: NEED FOR DIALYSIS History of Present Illness: 65 yo WF CKD, HTN presented to the ER after missing several dialysis sessions with AMS. The [facility] reports that she has been having more psych issues lately. She states that going to dialysis is a pain in the butt. +Appetite +Weakness +Fatigue Allergies No Known Allergies Allergy (Unverified 07/06/20 22:08) Home medications list reviewed: Yes - Past Medical/Surgical History Diabetic: Yes -: Anemia; Depression; Diabetes - IDDM; Dialysis; ESRD; GERD; Hyperlipidemi -: b/l BKA - Social History Smoking Status: Unknown if ever smoked Alcohol use: No CD- Drugs: No Caffeine use: No Place of Residence: [facility] Review of Systems 10-point ROS is otherwise unremarkable General: Weakness, Malaise Respiratory: SOB with Excertion Neurological: Weakness Physical Examination Temp Pulse Resp BP Pulse Ox 98.2 F 95 H 18 135/98 H 07/06/20 12:24 07/06/20 18:56 07/06/20 18:56 07/06/20 18:56 General: In no apparent distress, Cooperative HEENT: Atraumatic Neck: Supple Respiratory: Diminished Cardiovascular: Regular rate/rhythm, Edema Gastrointestinal: Soft and benign, Non-distended Musculoskeletal: No clubbing, No contractures Integumentary: No rashes, No cyanosis Neurological: Normal speech Laboratory Data (last 24 hrs) 07/06/20 13:50: WBC 5.90, Hgb 9.5 L, Hct 28.5 L, Plt Count 96 L 07/06/20 13:50: Sodium 144, Potassium 3.5, BUN 42 H, Creatinine 3.68 H, Glucose 85, Magnesium 2.5 H, Total Bilirubin 0.7, AST 12 L, ALT 13, Alkaline Phosphatase 147 H, Lipase 29 L Conclusions/Impression: A/P: Continue the current POC and Medications other than the changes listed. AM Labs PRN. Recommend daily weight. Please see the orders for complete details. ESRD -Acute HD ordered HTN with CKD/ CHF -Hydralazine PRN Diastolic CHF, chronic -HD with UF DM II with CKD -RISS Moderate malnutrition -Encourage nutrition -Start MVI Anemia in CKD -Give Retacrit ZOFIA/ Secondary HyperPTH -Start Calcitriol Thank you kindly for the consultation.
[2020-07-06] MEDS ORDERED: NA CHLORIDE 0.9% 1,000 ML IV PRN (22:09)
[2020-07-06] MEDS ORDERED: MANNITOL 25% 12.5 GM/50 ML VIAL IV PRN (22:09)
[2020-07-06] MEDS ORDERED: ALBUMIN HUMAN 25% 50 ML IV SCH (23:00)
[2020-07-07 06:06] LABS: Absolute Lymphocytes (CBC) 0.9 K/uL (0.7-4.9); Basophils % 0.4 % (0-1.3); Hematocrit 30.1 % (36.0-45.0); Lymphocytes % 15.8 % (15.3-44.8); MPV 8.4 fL (7.6-11.3); RBC Red Blood Cell Count 3.09 M/uL (3.86-4.86)
[2020-07-07 06:44] LABS: Albumin 2.7 g/dL (3.4-5.0); Bilirubin Total 0.6 mg/dL (0.2-1.0); Phosphorus 2.8 mg/dL (2.5-4.9); Protein, Total 5.8 g/dL (6.4-8.2); Uric Acid 6.1 mg/dL (2.6-6.0)
[2020-07-07] MEDS: INSULIN -REGULAR HUMAN 50 UNIT/0.5 ML ML SQ SCH ×3 (07:30→16:30)
[2020-07-07] MEDS ORDERED: POTASSIUM CL 40 MEQ in NA CHLORIDE 0.9% 500 ML IV SCH (08:00)
[2020-07-07] MEDS ORDERED: CALCITROL 0.25 MCG CAP PO SCH (09:00)
[2020-07-07] MEDS ORDERED: EPOETIN ALFA-EPBX 10,000 UNIT/ML VIAL SQ SCH (09:00)
[2020-07-07] MEDS ORDERED: MULTIVITAMINS,THERAPEUT 1 TAB PO SCH (09:00)
--- NOTE | 2020-07-07 11:21 | P.DS ---
Admission Date: 07/06/20 Discharge Date: 07/07/20 Disposition: ROUTINE DISCHARGE Discharge Condition: GOOD Reason for Admission: NEED FOR DIALYSIS Hospital Course: Patient is a 65 year old female with a known PMH of ESRD, DM, PVD s/p L BEVERLEY, r kasey. She is a usp patient who was been non-compliant with a HD scheduled, missed at least a week of HD. She was seen by Nephrology during this admission and was dialyzed. During my encounter with the patient today, she was alert and awake. She complained of lower extremity phanthom pain. She is already on gabapentin as outpatient. Vital Signs/Physical Exam: Temp Pulse Resp BP Pulse Ox 99.2 F 98 H 20 147/73 H 92 07/07/20 07:00 07/07/20 07:00 07/07/20 07:00 07/07/20 07:00 07/07/20 07:00 General: Alert, In no apparent distress HEENT: Atraumatic, Normocephalic Neck: Supple Respiratory: Clear to auscultation bilaterally, Normal air movement Cardiovascular: Other (L sided tunnelded HD catheter) Gastrointestinal: Soft and benign, Non-distended, No tenderness Musculoskeletal: Other (L DEEPA, R AKA) Neurological: Normal speech Laboratory Data at Discharge: WBC 5.90 K/uL (4.3-10.9) 07/07/20 05:23 Hgb 9.8 g/dL (12.0-15.0) L 07/07/20 05:23 Hct 30.1 % (36.0-45.0) L 07/07/20 05:23 Plt Count 95 K/uL (152-406) L 07/07/20 05:23 Sodium 145 mmol/L (136-145) 07/07/20 05:23 Potassium 3.0 mmol/L (3.5-5.1) L 07/07/20 05:23 BUN 45 mg/dL (7-18) H 07/07/20 05:23 Creatinine 3.58 mg/dL (0.55-1.3) H 07/07/20 05:23 Glucose 125 mg/dL (74-106) H 07/07/20 05:23 Uric Acid 6.1 mg/dL (2.6-6.0) H 07/07/20 05:23 Phosphorus 2.8 mg/dL (2.5-4.9) 07/07/20 05:23 Magnesium 2.5 mg/dL (1.8-2.4) H 07/06/20 13:50 Total Bilirubin 0.6 mg/dL (0.2-1.0) 07/07/20 05:23 AST 7 U/L (15-37) L 07/07/20 05:23 ALT 12 U/L (12-78) 07/07/20 05:23 Alkaline Phosphatase 138 U/L (45-117) H 07/07/20 05:23 Troponin I < 0.02 ng/mL (0.0-0.045) 07/06/20 21:17 Lipase 29 U/L (73-393) L 07/06/20 13:50 Home Medications: Albuterol Neb [Proventil 0.083% Neb Soln] 2.5 mg NEB [id number] PRN amp 07/07/20 Amlodipine Besylate 10 mg PO DAILY 07/07/20 Bromfenac Sodium [Prolensa] 1 drop OP BID 07/07/20 Calcitrol [Rocaltrol*] 0.5 mcg PO DAILY cap 07/07/20 Clopidogrel Bisulfate [Plavix*] 75 mg PO DAILY 07/07/20 Dorzolamide/Timolol/Pf [Dorzolamide-Timolol 2%-0.5%] 1 each OP BID 07/07/20 Duloxetine HCl [Drizalma Sprinkle] 60 mg PO BID 07/07/20 Fluocinonide/Emollient Base [Fluocinonide-E 0.05% Cream] 1 david TOP BID 07/07/20 Folic Acid 0.8 mg PO DAILY 07/07/20 Gabapentin [Neurontin*] 600 mg PO TID 07/07/20 Insulin Glargine,Hum.rec.anlog [Lantus Solostar] 20 unit SQ BEDTIME 07/07/20 Melatonin [Melatonin*] 10 mg PO BEDTIME 07/07/20 Pantoprazole [Protonix Tab*] 40 mg PO DAILY 07/07/20 Quetiapine [Seroquel*] 25 mg PO BID 07/07/20 Sevelamer Carbonate [Renvela*] 800 mg PO TIDWM 07/07/20 Trazodone HCl 50 mg PO BEDTIME 07/07/20 carvediloL [Coreg*] 6.25 mg PO BID 07/07/20 predniSONE [Prednisone*] 10 mg PO DAILY 07/07/20 traMADol HCL [Ultram*] 50 mg PO TID PRN 07/07/20 Followup: Harry Haque DO [Primary Care Provider] -
[2020-07-07 14:52] VITALS: TEMP 97.6
[2020-07-07 15:32] VITALS: O2SAT 94
[2020-07-07 18:50] VITALS: BP 118/56
--- NOTE | 2020-07-07 19:55 | PN ---
Date of Progress Note: 07/07/2020 Subjective: The patient was seen and examined at bedside. She has had her dialysis but could not to lerate very well because of hypotension. She requested being off dialysis a bit early. She states t hat she is doing much better at this time. Objective: Vital Signs: Have been reviewed and are stable. General: She appears in no acute distress. Lungs: Clear to auscultation. Abdomen: Soft and nontender. Extremities: Without any evidence of edema. Laboratory Data: Has been reviewed. Her potassium has been low at 3. Impression: 1.Noncompliance with dialysis. The patient had dialysis today. Has been counseled on the risk of d eath associated with noncompliance with dialysis. The patient voiced understanding and promised to i mprove compliance. 2.Anemia, secondary to end stage renal disease. 3.Hypertension. Monitor closely and p.r.n. hydralazine to avoid hypotension during dialysis. 4.Hypokalemia, being replaced at this time. Plan: Overall, the patient is clinically stable. She is okay to be discharged with good counseling on compliance with dialysis. VV/MODL Voice ID: [id number] Report ID: [id number]
== END 2020-07-07 16:59 | disposition home or self-care (01) ==
LOC: ER 12:13 → ERHOLD 16:47 → 2ND 19:52
PROVIDERS: ADMIT Internal Medicine; ATTEND Internal Medicine
DX: I13.2 Hypertensive heart and chronic kidney disease with heart failure and with stage 5 chronic kidney disease, or end stage renal disease (principal); Z91.15 Patient's noncompliance with renal dialysis; N18.6 End stage renal disease; Z99.2 Dependence on renal dialysis; D63.1 Anemia in chronic kidney disease; E87.6 Hypokalemia; Z20.822 Contact with and (suspected) exposure to COVID-19; E11.22 Type 2 diabetes mellitus with diabetic chronic kidney disease; E11.51 Type 2 diabetes mellitus with diabetic peripheral angiopathy without gangrene; Z89.512 Acquired absence of left leg below knee; Z89.611 Acquired absence of right leg above knee; F32.9 Major depressive disorder, single episode, unspecified; K21.9 Gastro-esophageal reflux disease without esophagitis; E78.5 Hyperlipidemia, unspecified; I50.32 Chronic diastolic (congestive) heart failure; E44.0 Moderate protein-calorie malnutrition; N25.81 Secondary hyperparathyroidism of renal origin
CPT/HCPCS: 93005; 85025 ×2; 80048; 36415; 83735; 84100; 82947 ×4; 80076; 84550; 84484 ×2; 83690; 80053; 99285; U0003; J3480; J1644; Q5106; J7040; G0378 ×3; G0257; J2150

== ENCOUNTER 2020-07-17 09:47 | Inpatient (IN) | payer OTHER ==
--- NOTE | 2020-07-17 10:23 | RAD REPORT ---
EXAM DESCRIPTION: CT - Head Brain Wo Cont - 07/17/2020 10:05 am CLINICAL HISTORY: CONFUSED COMPARISON: Head Brain Wo Cont dated 05/15/2020 TECHNIQUE: Axial 5 mm thick images of the head were obtained without IV contrast. All CT scans are performed using dose optimization technique as appropriate and may include automated exposure control or mA/KV adjustment according to patient size. FINDINGS: No intracranial hemorrhage, mass, edema or shift of mid-line structures. No acute infarcti on changes seen. No cortical edema or sulcal effacement. Atrophy changes are mild to moderate for age . Ventricles are in proportion to the volume loss. Patient has advanced for age chronic ischemic olea ge throughout the cerebral white matter and probably in the brainstem. Old infarction changes are pre sent at the posterior right parietooccipital junction, anterior left frontal and right subfrontal reg ion similar to comparison. Mastoid air cells and visualized portions of the paranasal sinuses are clear. No acute bony findings. IMPRESSION: Atrophy, chronic ischemic change and old infarction changes match the April 2020 stud y. No acute intracranial finding identifiable.
[2020-07-17 10:44] LABS: Protime INR 1.09
[2020-07-17 10:50] LABS: Absolute Lymphocytes (CBC) 0.4 K/uL (0.7-4.9); Basophils % 0.2 % (0-1.3); Hematocrit 29.7 % (36.0-45.0); Lymphocytes % 4.4 % (15.3-44.8); MPV 8.4 fL (7.6-11.3); RBC Red Blood Cell Count 3.06 M/uL (3.86-4.86)
[2020-07-17 10:59] LABS: ALT/SGPT 14 U/L (12-78); AST/SGOT 28 U/L (15-37); Albumin 2.1 g/dL (3.4-5.0); Alkaline Phosphatase 90 U/L (45-117); BUN Blood Urea Nitrogen 22 mg/dL (7-18); Bicarbonate 23 mmol/L (21-32); Bilirubin Direct 0.2 mg/dL (0-0.2); Bilirubin Total 0.8 mg/dL (0.2-1.0); CKMB Creatine Kinase MB < 1.0 ng/mL (0.3-3.6); Creatine Phosphokinase 44 U/L (26-192); Glucose Level 121 mg/dL (74-106); Lipase 17 U/L (73-393); Magnesium 1.7 mg/dL (1.8-2.4); Potassium 3.1 mmol/L (3.5-5.1); Protein, Total 4.9 g/dL (6.4-8.2); Sodium Level 139 mmol/L (136-145); Troponin (Emerg Dept Use Only) 0.33 ng/mL (0.0-0.045)
--- NOTE | 2020-07-17 12:32 | ER ---
Nurse's Notes [facility] Name: Lisa Jones Age: 65 yrs Sex: Female : 1955 Arrival Date: 07/17/2020 Time: 09:51 Bed 2 Private MD: Diagnosis: Altered mental status, unspecified;Hypotension;Hypokalemia Presentation: 07/17 09:51 Chief complaint: EMS states: PT ALLEGEDLY "MORE ALTERED" THAN USUAL. PT BASELINE AOx bp 0-1. PT REFUSING DIALYSIS LATELY. Coronavirus screen: At this time, the client does not indicate any symptoms associated with coronavirus-19. Ebola Screen: No symptoms or risks identified at this time. Initial Sepsis Screen: Does the patient meet any 2 criteria? Systolic BP < 90 mmHg. Altered Mental Status. Yes Does the patient have a suspected source of infection? No. Patient's initial sepsis screen is negative. Risk Assessment: Do you want to hurt yourself or someone else? Patient reports no desire to harm self or others. Onset of symptoms is unknown. Care prior to arrival: IV initiated. 20 GA, in the right hand, Glucose check: 151. 09:51 Method Of Arrival: EMS: [facility] bp 09:51 Acuity: LORIN 2 bp Triage Assessment: 10:10 General: Appears in no apparent distress. comfortable, obese, Behavior is listless. bp Pain: Unable to use pain scale. Does not appear to understand pain scale. EENT: No deficits noted. Neuro: Level of Consciousness is obtunded, Oriented to none BASELINE ORIENTATION TO NAME ONLY INTERMITTENTLY. Cardiovascular: Rhythm is sinus tachycardia. Respiratory: No deficits noted. GI: No signs and/or symptoms were reported involving the gastrointestinal system. : No signs and/or symptoms were reported regarding the genitourinary system. Derm: No deficits noted. Musculoskeletal: No deficits noted. 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 Historical: - Allergies: 10:01 Heparin; bp 10:01 metformin; bp 10:01 Keflex; bp 10:01 Zosyn; bp 10:01 Sulfa (Sulfonamide Antibiotics); bp - Home Meds: 10:01 albuterol sulfate 2.5 mg /3 mL (0.083 %) Inhl nebu 3 mL every 6 hours [Active]; bp amlodipine 10 mg tab 1 tab once daily [Active]; carvedilol 6.25 mg Oral tab 1 tab 2 times per day [Active]; dorzolamide-timolol (PF) ophthalmic 1 drop 2 times per day [Active]; duloxetine 60 mg Oral cpDR twice a day [Active]; Fluocinolone Acetonide 0.05% oint Topical every shift [Active]; folic acid 800 mcg Oral tab 1 tab once daily [Active]; gabapentin 600 mg Oral tab 3 times per day [Active]; Lantus Solostar 100 unit/mL (3 mL) subcutaneous inpn 20 unit nightly [Active]; melatonin 10 mg Oral tab nightly [Active]; pantoprazole 40 mg Oral TbEC 1 tab once daily [Active]; Plavix 75 mg Oral tab 1 tab once daily [Active]; Prolensa 0.07 % ophthalmic drop 1 drop twice a day [Active]; Renvela 800 mg Oral tab 2 tabs three times a day [Active]; Seroquel 25 mg Oral tab 1 tab 2 times per day [Active]; trazodone 50 mg Oral tab 1 tab nightly [Active]; tramadol 50 mg Oral tab 1 tab every 4-6 hours [Active]; - PMHx: 10:01 TOXIC EPIDERMAL NECROLYSIS; Diabetes - IDDM; Dementia; Hypothyroidism; Anemia; bp Hyperlipidemia; Depression; ESRD; GERD; Psychotic disorder; 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 - Social history:: Smoking status: Patient denies any tobacco usage or history of. Screenin:00 Abuse screen: Denies threats or abuse. Denies injuries from another. Nutritional bp screening: No deficits noted. Tuberculosis screening: No symptoms or risk factors identified. Fall Risk None identified. Assessment: 10:10 General: SEE TRIAGE NOTE. bp 11:00 Reassessment: No changes from previously documented assessment. Patient states symptoms bp have not improved. Neuro: Level of Consciousness is obtunded, Oriented to none. 13:00 Reassessment: No changes from previously documented assessment. ADMIT INITIATED. bp Patient states symptoms have not improved. 13:59 Reassessment: No changes from previously documented assessment. HOSPITALIST AT B/S bp Patient states symptoms have not improved. Neuro: Level of Consciousness is obtunded, Oriented to none. 14:59 Reassessment: No changes from previously documented assessment. ADMIT IN PROCESS bp Patient states symptoms have not improved. 15:59 Reassessment: No changes from previously documented assessment. ADMIT COMPLETE, BED bp ASSIGNED Patient states symptoms have not improved. 17:17 Reassessment: ADMIT COMPLETE, REPORT TO MISAEL DIAZ FOR RM 420. bp Vital Signs: 09:51 BP 86 / 47; Pulse 102; Resp 14; Temp 97.5; Pulse Ox 87% ; bp 11:00 BP 94 / 57; Pulse 102; Resp 22; Pulse Ox 97% ; bp 12:00 BP 92 / 53; Pulse 101; Resp 23; Pulse Ox 98% ; bp 13:00 BP 93 / 53; Pulse 102; Resp 23; Pulse Ox 90% 3 lpm ; bp 13:59 BP 88 / 49; Pulse 85; Resp 21; Pulse Ox 96% ; bp 14:59 BP 98 / 54; Pulse 85; Resp 22; Pulse Ox 92% on 3 lpm NC; bp 15:57 BP 89 / 59; Pulse 84; Resp 21; Pulse Ox 93% ; bp 17:05 BP 105 / 65; Pulse 84; Resp 14; Pulse Ox 94% ; bp NIH Stroke Scale Scores: 10:01 NIHSS Score: 10 bp ED Course: 09:51 Patient arrived in ED. bp 09:53 Scott Fernandes MD is Attending Physician. tw4 09:54 Triage completed. bp 10:05 CT Head Brain wo Cont In Process Unspecified. EDMS 10:10 Arm band placed on. bp 10:13 Aj Vaca, JOE is Primary Nurse. bp 11:00 Patient has correct armband on for positive identification. Bed in low position. Call bp light in reach. Side rails up X2. 11:15 Inserted saline lock: 22 gauge in left hand, using aseptic technique. Blood collected. bp 12:30 Alfonzo Sapp MD is Hospitalizing Provider. tw4 15:58 No provider procedures requiring assistance completed. Patient admitted, IV remains in bp place. Administered Medications: No medications were administered Outcome: 12:31 Decision to Hospitalize by Provider. tw4 17:18 Admitted to Tele accompanied by amandeep, via stretcher, room 420, with chart, Report bp called to MISAEL DIAZ 17:18 Condition: stable 17:18 Instructed on the need for admit. 18:10 Patient left the ED. bp NIH Stroke Scale - NIH Stroke Score Date: 07/17/2020 Time: 10:01 Total Score = 10 1a. Level of Consciousness (LOC) - 1(Not Alert) 1b. Level of Consciousness (LOC) (Year \\T\\ Age) - 2(Neither) 1c. LOC Commands (Open \\T\\ Closes Eyes/Computational Sciences Professor) - 2(Neither) 2. Best Gaze (Lateral Gaze Paresis) - 0(Normal) 3. Visual Field Loss - 0(No visual loss) 4. Facial Palsy - 0(Normal) 5a. Left Arm: Motor (10-second hold) - 1(Drift) 5b. Right Arm: Motor (10-second hold) - 1(Drift) 6a. Left Leg: Motor (5-second hold - always test supine) - 1(Drift) 6b. Right Leg: Motor (5-second hold - always test supine) - 1(Drift) 7. Limb Ataxia (finger/nose \\T\\ heel/romero - test with eyes open) - 0(Absent) 8. Sensory Loss (pinprick arms/legs/face) - 0(Normal) 9. Best Language: Aphasia (description/naming/reading) - 1(Mild to moderate aphasia) 10. Dysarthria (speech clarity - read or repeat words) - 0(Normal) 11. Extinction and Inattention (visual/tactile/auditory/spatial/personal) - 0(No abnormality) Initials: bp Signatures: Dispatcher [employer] Aj Singh, RN RN Scott Owens MD MD tw4
--- NOTE | 2020-07-17 12:32 | EDPHYS ---
Physician Documentation [facility] Name: Lisa Jones Age: 65 yrs Sex: Female : 1955 Arrival Date: 07/17/2020 Time: 09:51 Bed 2 Private MD: ED Physician Scott Fernandes HPI: 07/17 14:33 This 65 yrs old Female presents to ER via EMS with complaints of Altered tw4 Mental Status. 14:33 The patient presents with decreased mental status, decreased responsiveness. Onset: The tw4 symptoms/episode began/occurred today. Associated signs and symptoms: The patient has no apparent associated signs or symptoms. Current symptoms: In the emergency department the patient's symptoms are unchanged from the initial presentation. The patient has not experienced similar symptoms in the past. Historical: - Allergies: 10:01 Heparin; bp 10:01 metformin; bp 10:01 Keflex; bp 10:01 Zosyn; bp 10:01 Sulfa (Sulfonamide Antibiotics); bp - Home Meds: 10:01 albuterol sulfate 2.5 mg /3 mL (0.083 %) Inhl nebu 3 mL every 6 hours [Active]; bp amlodipine 10 mg tab 1 tab once daily [Active]; carvedilol 6.25 mg Oral tab 1 tab 2 times per day [Active]; dorzolamide-timolol (PF) ophthalmic 1 drop 2 times per day [Active]; duloxetine 60 mg Oral cpDR twice a day [Active]; Fluocinolone Acetonide 0.05% oint Topical every shift [Active]; folic acid 800 mcg Oral tab 1 tab once daily [Active]; gabapentin 600 mg Oral tab 3 times per day [Active]; Lantus Solostar 100 unit/mL (3 mL) subcutaneous inpn 20 unit nightly [Active]; melatonin 10 mg Oral tab nightly [Active]; pantoprazole 40 mg Oral TbEC 1 tab once daily [Active]; Plavix 75 mg Oral tab 1 tab once daily [Active]; Prolensa 0.07 % ophthalmic drop 1 drop twice a day [Active]; Renvela 800 mg Oral tab 2 tabs three times a day [Active]; Seroquel 25 mg Oral tab 1 tab 2 times per day [Active]; trazodone 50 mg Oral tab 1 tab nightly [Active]; tramadol 50 mg Oral tab 1 tab every 4-6 hours [Active]; - PMHx: 10:01 TOXIC EPIDERMAL NECROLYSIS; Diabetes - IDDM; Dementia; Hypothyroidism; Anemia; bp Hyperlipidemia; Depression; ESRD; GERD; Psychotic disorder; 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 - Social history:: Smoking status: Patient denies any tobacco usage or history of. ROS: 14:33 Constitutional: Negative for fever, chills, and weight loss, Eyes: Negative for injury, tw4 pain, redness, and discharge, Cardiovascular: Negative for chest pain, palpitations, and edema, Respiratory: Negative for shortness of breath, cough, wheezing, and pleuritic chest pain, Abdomen/GI: Negative for abdominal pain, nausea, vomiting, diarrhea, and constipation, Back: Negative for injury and pain, MS/Extremity: Negative for injury and deformity, Skin: Negative for injury, rash, and discoloration. 14:33 Neuro: Positive for altered mental status, Negative for dizziness, gait disturbance, headache, hearing loss, numbness, seizure activity, speech changes, syncope, near syncope, tingling, tinnitus, tremor, visual changes, acute changes. Exam: 14:33 Constitutional: This is a well developed, well nourished patient who is awake, alert, tw4 and in no acute distress. Head/Face: Normocephalic, atraumatic. Chest/axilla: Normal chest wall appearance and motion. Nontender with no deformity. No lesions are appreciated. Cardiovascular: Regular rate and rhythm with a normal S1 and S2. No gallops, murmurs, or rubs. Normal PMI, no JVD. No pulse deficits. Respiratory: Lungs have equal breath sounds bilaterally, clear to auscultation and percussion. No rales, rhonchi or wheezes noted. No increased work of breathing, no retractions or nasal flaring. Abdomen/GI: Soft, non-tender, with normal bowel sounds. No distension or tympany. No guarding or rebound. No evidence of tenderness throughout. Back: No spinal tenderness. No costovertebral tenderness. Full range of motion. MS/ Extremity: Pulses equal, no cyanosis. Neurovascular intact. Full, normal range of motion. 14:33 Neuro: Orientation: is normal, Mentation: is normal. Vital Signs: 09:51 BP 86 / 47; Pulse 102; Resp 14; Temp 97.5; Pulse Ox 87% ; bp 11:00 BP 94 / 57; Pulse 102; Resp 22; Pulse Ox 97% ; bp 12:00 BP 92 / 53; Pulse 101; Resp 23; Pulse Ox 98% ; bp 13:00 BP 93 / 53; Pulse 102; Resp 23; Pulse Ox 90% 3 lpm ; bp 13:59 BP 88 / 49; Pulse 85; Resp 21; Pulse Ox 96% ; bp 14:59 BP 98 / 54; Pulse 85; Resp 22; Pulse Ox 92% on 3 lpm NC; bp 15:57 BP 89 / 59; Pulse 84; Resp 21; Pulse Ox 93% ; bp 17:05 BP 105 / 65; Pulse 84; Resp 14; Pulse Ox 94% ; bp NIH Stroke Scale Scores: 10:01 NIHSS Score: 10 bp MDM: 09:53 Patient medically screened. tw4 14:33 Differential Diagnosis: hypoglycemia, intracranial bleed, volume depletion. Data tw4 reviewed: vital signs, nurses notes. Counseling: I had a detailed discussion with the patient and/or guardian regarding: the historical points, exam findings, and any diagnostic results supporting the discharge/admit diagnosis, lab results, radiology results. Physician consultation: Alfonzo Sapp MD regarding admission, to the telemetry unit. patient's condition, and will see patient. 07/17 09:57 Order name: Basic Metabolic Panel 07/17 09:57 Order name: CBC with Diff 07/17 09:57 Order name: Ckmb 07/17 09:57 Order name: CPK; Complete Time: 12:13 07/17 12:14 Interpretation: Within normal limits: CPK 44. 07/17 09:57 Order name: Hepatic Function; Complete Time: 12:13 07/17 09:57 Order name: Lipase; Complete Time: 12:13 07/17 09:57 Order name: Magnesium; Complete Time: 12:13 07/17 09:57 Order name: Protime (+inr); Complete Time: 12:13 07/17 09:57 Order name: Ptt, Activated; Complete Time: 12:13 07/17 12:14 Interpretation: Within normal limits: PTT 26.1. tw4 04/27 09:57 Order name: Troponin (emerg Dept Use Only); Complete Time: 12:13 07/17 12:14 Interpretation: Abnormal: TROPED 0.33. 07/17 09:57 Order name: Basic Metabolic Panel; Complete Time: 12:13 EDMS 07/17 12:13 Interpretation: Normal except: K 3.1; CRE 2.36; BUN 22; GLUC 121; GFR 21. 07/17 09:57 Order name: CBC with Automated Diff; Complete Time: 15:19 EDMS 07/17 12:14 Interpretation: Normal except: WBC 9.20; RBC 3.06; HGB 9.6; HCT 29.7; MN% 2.7; LYM% tw4 4.4; HOMER% 92.6; RDW 16.2; NEUT A 8.5; LYMA 0.4. 07/17 09:57 Order name: CKMB Creatine Kinase MB; Complete Time: 12:13 EDME 07/17 12:14 Interpretation: Within normal limits: CKMB < 1.0. 07/17 10:39 Order name: Lactate; Complete Time: 12:13 07/17 12:14 Interpretation: Within normal limits: LAC 1.7. 07/17 09:57 Order name: CT Head Brain wo Cont; Complete Time: 10:32 07/17 09:57 Order name: EKG; Complete Time: 09:58 07/17 10:32 Interpretation: Within normal limits. 07/17 09:57 Order name: Cardiac monitoring; Complete Time: 10:41 07/17 09:57 Order name: EKG - Nurse/Tech; Complete Time: 10:41 07/17 09:57 Order name: IV Saline Lock; Complete Time: 10:41 07/17 09:57 Order name: Labs collected and sent; Complete Time: 10:41 07/17 09:57 Order name: NPO; Complete Time: 10:14 07/17 09:57 Order name: O2 Per Protocol; Complete Time: 10:13 07/17 09:57 Order name: O2 Sat Monitoring; Complete Time: 10:13 07/17 10:39 Order name: Blood Culture Adult (2) 07/17 12:18 Order name: COVID-19 : Document "Date of Symptom Onset" if Symptomatic. bp 07/17 13:27 Order name: Manual Differential; Complete Time: 15:19 EDMS 07/17 13:38 Order name: SARS-COV-2 RT PCR; Complete Time: 15:19 EDMS Administered Medications: No medications were administered Disposition: 07/17/20 12:31 Hospitalization ordered by Alfonzo Sapp for Inpatient Admission. Preliminary diagnosis are Altered mental status, unspecified, Hypotension, Hypokalemia. - Bed requested for Telemetry/MedSurg (Inpatient). - Status is Inpatient Admission. bp - Condition is Stable. - Problem is an ongoing problem. - Symptoms are unchanged. NIH Stroke Scale - NIH Stroke Score Date: 07/17/2020 Time: 10:01 Total Score = 10 1a. Level of Consciousness (LOC) - 1(Not Alert) 1b. Level of Consciousness (LOC) (Year \\T\\ Age) - 2(Neither) 1c. LOC Commands (Open \\T\\ Closes Eyes/[employer] Worker Apprentice) - 2(Neither) 2. Best Gaze (Lateral Gaze Paresis) - 0(Normal) 3. Visual Field Loss - 0(No visual loss) 4. Facial Palsy - 0(Normal) 5a. Left Arm: Motor (10-second hold) - 1(Drift) 5b. Right Arm: Motor (10-second hold) - 1(Drift) 6a. Left Leg: Motor (5-second hold - always test supine) - 1(Drift) 6b. Right Leg: Motor (5-second hold - always test supine) - 1(Drift) 7. Limb Ataxia (finger/nose \\T\\ heel/romero - test with eyes open) - 0(Absent) 8. Sensory Loss (pinprick arms/legs/face) - 0(Normal) 9. Best Language: Aphasia (description/naming/reading) - 1(Mild to moderate aphasia) 10. Dysarthria (speech clarity - read or repeat words) - 0(Normal) 11. Extinction and Inattention (visual/tactile/auditory/spatial/personal) - 0(No abnormality) Initials: bp Signatures: Dispatcher [employer] EDMS Sheila Chappell RN RN dw Attema, Lee, ORACLE BRM DEVELOPER-C ORACLE BRM DEVELOPER-Cla1 Aj Vaca RN RN bp Wadley, Terrence, MD MD tw4 Corrections: (The following items were deleted from the chart) 12:32 12:31 Hospitalization Ordered by Alfonzo Sapp MD for Inpatient Admission. tw4 Preliminary diagnosis is Altered mental status, unspecified. Bed requested for Telemetry/MedSurg (Inpatient). Status is Inpatient Admission. Condition is Stable. Problem is an ongoing problem. Symptoms are unchanged. tw4 12:57 12:18 CORONAVIRUS ordered. [facility] EDMS 13:27 10:59 CBC Smear Scan ordered. [facility] EDMS 15:52 12:32 07/17/2020 12:31 Hospitalization Ordered by Alfonzo Sapp MD for dw Inpatient Admission. Preliminary diagnosis is Altered mental status, unspecified; Hypotension; Hypokalemia. Bed requested for Telemetry/MedSurg (Inpatient). Status is Inpatient Admission. Condition is Stable. Problem is an ongoing problem. Symptoms are unchanged. tw4 18:10 15:52 07/17/2020 12:31 Hospitalization Ordered by Alfonzo Sapp MD for bp Inpatient Admission. Preliminary diagnosis is Altered mental status, unspecified; Hypotension; Hypokalemia. Bed requested for Telemetry/MedSurg (Inpatient). Status is Inpatient Admission. Condition is Stable. Problem is an ongoing problem. Symptoms are unchanged.
[2020-07-17 13:27] LABS: Platelet Estimate DECR
[2020-07-17 13:28] LABS: Blood Morphology Comment NOT SEEN (NOT SEEN)
--- NOTE | 2020-07-17 15:48 | P.HP ---
Certification for Inpatient Patient admitted to: Inpatient With expected LOS: >2 Midnights Patient will require the following post-hospital care: None Practitioner: I am a practitioner with admitting privileges, knowledge of patient current condition, hospital course, and medical plan of care. Services: Services provided to patient in accordance with Admission requirements found in Title 42 Section 412.3 of the Code of Federal Regulations Patient History Date of Service: 07/17/20 Reason for admission: AMS History of Present Illness: Patient is a 65 year old female with a PMHx significant for Diabetes - IDDM; Dementia, Hypothyroidism; Anemia, Hyperlipidemia, Depression, ESRD, GERD, Psychotic disorder, Cooley-unique syndrome who presents with c\o of AMS onset today. Patient is a resident of a NH and patient has been refusing dialysis in recent times. Patient is AAO x1 at baseline. longterm staff noted that patient was more less responsive and more confused compared to het baseline. No other s\s reported. Symptoms are aggravated or relieved by nothing. Patient was brought to the ER for medical evaluation. Allergies No Known Allergies Allergy (Unverified 07/06/20 22:08) Home medications list reviewed: Yes Home Medications: Albuterol Neb [Proventil 0.083% Neb Soln] 2.5 mg NEB [id number] PRN amp 07/07/20 Amlodipine Besylate 10 mg PO DAILY 07/07/20 Bromfenac Sodium [Prolensa] 1 drop OP BID 07/07/20 Calcitrol [Rocaltrol*] 0.5 mcg PO DAILY cap 07/07/20 Clopidogrel Bisulfate [Plavix*] 75 mg PO DAILY 07/07/20 Dorzolamide/Timolol/Pf [Dorzolamide-Timolol 2%-0.5%] 1 each OP BID 07/07/20 Duloxetine HCl [Drizalma Sprinkle] 60 mg PO BID 07/07/20 Fluocinonide/Emollient Base [Fluocinonide-E 0.05% Cream] 1 david TOP BID 07/07/20 Folic Acid 0.8 mg PO DAILY 07/07/20 Gabapentin [Neurontin*] 600 mg PO TID 07/07/20 Insulin Glargine,Hum.rec.anlog [Lantus Solostar] 20 unit SQ BEDTIME 07/07/20 Melatonin [Melatonin*] 10 mg PO BEDTIME 07/07/20 Pantoprazole [Protonix Tab*] 40 mg PO DAILY 07/07/20 Quetiapine [Seroquel*] 25 mg PO BID 07/07/20 Sevelamer Carbonate [Renvela*] 800 mg PO TIDWM 07/07/20 Trazodone HCl 50 mg PO BEDTIME 07/07/20 carvediloL [Coreg*] 6.25 mg PO BID 07/07/20 predniSONE [Prednisone*] 10 mg PO DAILY 07/07/20 traMADol HCL [Ultram*] 50 mg PO TID PRN 07/07/20 - Past Medical/Surgical History Diabetic: Yes -: Anemia; Depression; Diabetes - IDDM; Dialysis; ESRD; GERD; Hyperlipidemi -: R AKA and Left BKA - Social History Smoking Status: Unknown if ever smoked Alcohol use: No CD- Drugs: No Caffeine use: No Place of Residence: Jail Review of Systems is unable to be obtained Physical Examination - Physical Exam General: Demented, Confused HEENT: Atraumatic Neck: Supple, 2+ carotid pulse no bruit, No LAD, Without JVD or thyroid abnormality Respiratory: Clear to auscultation bilaterally, Normal air movement Cardiovascular: Regular rate/rhythm, Normal S1 S2 Capillary refill: <2 Seconds Gastrointestinal: Normal bowel sounds, Non-distended, No tenderness Musculoskeletal: No tenderness Integumentary: No rashes Neurological: Dementia Lymphatics: No axilla or inguinal lymphadenopathy External genitalia: Deferred Rectal: Deferred - Studies Laboratory Data (last 24 hrs) 07/17/20 10:23: PT 12.6 H, INR 1.09, APTT 26.1 07/17/20 10:23: WBC 9.20 D, Hgb 9.6 L, Hct 29.7 L, Plt Count 46 L* D 07/17/20 10:23: Sodium 139, Potassium 3.1 L, BUN 22 H D, Creatinine 2.36 H D, Glucose 121 H, Magnesium 1.7 L D, Total Bilirubin 0.8, AST 28, ALT 14, Alkaline Phosphatase 90, Lipase 17 L Assessment and Plan - Plan --Acute encephalopathy. Unclear etiology. CT brain unremarkable for any acute abnormality. . Blood cultures pending. Will keep patient NPO at this time. Continue supportive care --DM 2. BS monitoring with s\s insulin --ESRD . Die Presser consulted. Further mgt per lace paper machine operator --Elevated Troponin. Will trend troponin. Kiln Burner consulted. Telemetry to monitor for any significant arrhythmia Further management per community outreach worker --Thrombocytopenia. Unclear etiology. Continue supportive care. --Hypothyroidism. Continue home medication when appropriate -- Anemia. H\H stable. Will continue to monitor hemoglobin and transfuse if <7.0 -- Hyperlipidemia. Continue home medication when appropriate -- Depression. Continue home medication when appropriate -- GERD. Placed on protonix IV. --Right AKA and Left BKA. Continue supportive care --DVT prophylaxis with SCDs. Discharge Plan: Jail Plan to discharge in: Greater than 2 days - Advance Directives Does patient have a Living Will: No Does patient have a Durable POA for Healthcare: No - Code Status/Comfort Care Code Status Assessed: No Critical Care: No
[2020-07-17 18:41] VITALS: BMI 35.4
[2020-07-17] MEDS ORDERED: ONDANSETRON 4 MG/2 ML VIAL IV PRN (18:50)
[2020-07-17] MEDS ORDERED: ACETAMINOPHEN 650MG/RECT SUPP PR PRN (18:50)
[2020-07-17] MEDS ORDERED: KCL 10 MEQ/100 ML IVPB 10 MEQ/100 ML BAG IV ONE (19:00)
[2020-07-17] MEDS ORDERED: NA CHLORIDE 0.9% 250 ML IV ONE (19:30)
[2020-07-17 21:05] LABS: Troponin I 1.68 ng/mL (0.0-0.045)
[2020-07-17] MEDS ORDERED: GLUCAGON 1 MG/VIAL IM PRN (21:30)
[2020-07-17] MEDS ORDERED: D50W 25 GM/50 ML SYRINGE IV PRN (21:30)
[2020-07-17] MEDS ORDERED: SODIUM CHLORIDE 0.9% 10ML INJ IV PRN (21:53)
[2020-07-18] MEDS: INSULIN -REGULAR HUMAN 50 UNIT/0.5 ML ML SQ SCH ×6 (01:00→19:50)
[2020-07-18 06:19] LABS: Absolute Lymphocytes (CBC) 0.5 K/uL (0.7-4.9); Basophils % 0.4 % (0-1.3); Lymphocytes % 5.8 % (15.3-44.8); MPV 10.1 fL (7.6-11.3)
[2020-07-18 06:38] LABS: Potassium 3.6 mmol/L (3.5-5.1)
[2020-07-18] MEDS ORDERED: ALBUTEROL 2.5 MG/3 ML NEB SOL NEB PRN (07:17)
--- NOTE | 2020-07-18 07:38 | EKG ---
Test Date: 2020-07-17 Test Time: 10:23:15 Facilities Assistant: LAQUITA MEASUREMENT RESULTS: Intervals: Rate: 102 MD: 138 QRSD: 78 QT: 362 QTc: 471 [place]: P: 44 MD: 138 QRS: 41 T: 94 INTERPRETIVE STATEMENTS: Sinus tachycardia Otherwise normal ECG Compared to ECG 07/06/2020 13:17:40 Sinus rhythm no longer present Electronically Signed On 07-18-20 07:35:24 CDT by Hill Garcia
[2020-07-18 07:47] LABS: Platelet Estimate DECR
[2020-07-18 07:48] LABS: Blood Morphology Comment NOT SEEN (NOT SEEN)
[2020-07-18] MEDS: SEVELAMER CARBONATE 800 MG TABLET PO SCH ×3 (08:00→16:05)
[2020-07-18 08:16] LABS: Ferritin 7715.2 ng/mL (8-388)
[2020-07-18] MEDS ORDERED: FOLIC ACID 5 MG/ML VIAL IVP SCH (09:00)
[2020-07-18] MEDS ORDERED: BROMFENAC SODIUM OP SCH (09:00)
[2020-07-18] MEDS ORDERED: THIAMINE 200 MG/2 ML INJ IVP SCH (09:00)
[2020-07-18] MEDS ORDERED: DROPERETTE OP SCH (09:00)
[2020-07-18] MEDS ORDERED: FOLIC ACID 1 MG in NA CHLORIDE 0.9% 50 ML IV SCH (09:00)
[2020-07-18] MEDS ORDERED: PANTOPRAZOLE 40 MG INJ IVP SCH (09:00)
[2020-07-18] MEDS ORDERED: TIMOLOL OP SCH (09:00)
[2020-07-18] MEDS ORDERED: DORZOLAMIDE OP SCH (09:00)
--- NOTE | 2020-07-18 09:01 | RAD REPORT ---
EXAM DESCRIPTION: [employer] Single View07/18/2020 8:43 am CLINICAL HISTORY: Hypertension COMPARISON: none FINDINGS: The lungs appear clear of acute infiltrate. The heart is normal size. A central venous ca theter has its tip in the right atrium IMPRESSION: No acute abnormalities displayed
[2020-07-18] MEDS ORDERED: VANCOMYCIN/NS 1 gm 1 GM/250 ML BAG IVPB SCH (10:00)
[2020-07-18] MEDS ORDERED: VANCOMYCIN 500 MG in NA CHLORIDE 0.9% 100 ML IVPB SCH (10:30)
[2020-07-18 11:30] VITALS: O2SAT 96
--- NOTE | 2020-07-18 12:18 | P.PN ---
Subjective Date of Service: 07/18/20 Primary Care Provider: retirement Chief Complaint: AMS Subjective: Other (Patient remains confused. She is not in any distress.) Physical Examination - Vital Signs Temperature: 98.3 F Blood Pressure: 88/52 Pulse: 88 Respirations: 16 Pulse Ox (%): 95 - Studies Laboratory Data (last 24 hrs) 07/17/20 10:23: WBC 9.20 D, Hgb 9.6 L, Hct 29.7 L, Plt Count 46 L* D Assessment & Plan Discharge Plan: [facility] (with hospice) Plan to discharge in: 24 Hours - Code Status/Comfort Care Code Status Assessed: Yes (Patient is DNR. Advanced care planning-30 minutes) Code Status: Do Not Attempt Resuscitat Physician Review Additional Text: Physical exam: Patient confused. Patient appears alert. She responds to pain. Patient appears aphasic. Heart: Regular rate and rhythm Lungs: Slightly decreased at the bases Abdomen: Soft nontender Extremities: Bilateral amputations right AKA, left BKA. Impression: Acute encephalopathy etiology unknown suspect underlying infection versus CVA versus other End-stage renal disease on hemodialysis with noncompliance Elevated troponin likely related to above Hypertension Anemia with thrombocytopenia chronic Diabetes mellitus type 2 History of CVA Hyperlipidemia Depression with anxiety GERD Plan: Spoke with medical power of attorneyfriend and family members including [id number] and son. All have mentioned patient has been refusing dialysis for a while. She has also been declining in health. Current etiology of encephalopathy unknown. Suspect underlying infection currently on antibiotic therapy. Blood cultures, urine cultures obtained. Also possible would be CVA. MRI pending. Patient requires dialysis. Other lab reviewed. Nephrology, neurology and hepatology consulted. After my discussion with the family and medical power of refresh technician, patient had expressed to them in the past that patient would want to be DO NOT RESUSCITATE. Due to her recent refusal of dialysis they feel patient is ready for hospice. Hospice was addressed in detail with the family. At this point they do not want to pursue any invasive procedure. They would much rather keep the patient comfortable and hospice at the residential. Therefore will discontinue MRI. Continue conservative measures at this time. Keep the patient comfortable. Will contact social service agency director to help arrange for hospice at the residential. No dialysis for the patient at this time. Will discuss with team on plan of care. Advance care [id number] minutes. Time Spent Managing Pts Care (In Minutes): 55
[2020-07-18] MEDS ORDERED: MORPHINE 2 MG/ML SYR IV PRN (12:24)
[2020-07-18] MEDS ORDERED: LORazepam 2 MG/ML VIAL IV PRN (12:24)
--- NOTE | 2020-07-18 21:17 | P.CNS ---
Date of Consult: 07/18/20 Reason for Consult: ESRD Requesting Physician: Aldo Newton Primary Care Provider: detention Chief Complaint: AMS History of Present Illness: Patient is a 65 year old female with a PMHx significant for Diabetes - IDDM; Dementia, Hypothyroidism; Anemia, Hyperlipidemia, Depression, ESRD, GERD, Psychotic disorder, Cooley-unique syndrome who presents with c\o of AMS onset today. Patient is a resident of a NH and patient has been refusing dialysis in recent times. Patient is AAO x1 at baseline. detention staff noted that patient was more less responsive and more confused compared to het baseline. No other s\s reported. Symptoms are aggravated or relieved by nothing. Patient was brought to the ER for medical evaluation. 14:33 This 65 yrs old Female presents to ER via EMS with complaints of Altered tw4 Mental Status. 14:33 The patient presents with decreased mental status, decreased responsiveness. Onset: The tw4 symptoms/episode began/occurred today. Associated signs and symptoms: The patient has no apparent associated signs or symptoms. Current symptoms: In the emergency department the patient's symptoms are unchanged from the initial presentation. The patient has not experienced similar symptoms in the past. Allergies No Known Allergies Allergy (Unverified 07/06/20 22:08) Home medications list reviewed: Yes Home Medications: Albuterol Neb [Proventil 0.083% Neb Soln] 2.5 mg NEB [id number] PRN amp 07/07/20 Amlodipine Besylate 10 mg PO DAILY 07/07/20 Bromfenac Sodium [Prolensa] 1 drop OP BID 07/07/20 Clopidogrel Bisulfate [Plavix*] 75 mg PO DAILY 07/07/20 Dorzolamide/Timolol/Pf [Dorzolamide-Timolol 2%-0.5%] 1 each OP BID 07/07/20 Duloxetine HCl [Drizalma Sprinkle] 60 mg PO BID 07/07/20 Fluocinonide/Emollient Base [Fluocinonide-E 0.05% Cream] 1 david TOP BID 07/07/20 Folic Acid 0.8 mg PO DAILY 07/07/20 Gabapentin [Neurontin*] 600 mg PO TID 07/07/20 Insulin Glargine,Hum.rec.anlog [Lantus Solostar] 20 unit SQ BEDTIME 07/07/20 Melatonin [Melatonin*] 10 mg PO BEDTIME 07/07/20 Pantoprazole [Protonix Tab*] 40 mg PO DAILY 07/07/20 Quetiapine [Seroquel*] 25 mg PO BID 07/07/20 Sevelamer Carbonate [Renvela*] 800 mg PO TIDWM 07/07/20 Trazodone HCl 50 mg PO BEDTIME 07/07/20 carvediloL [Coreg*] 6.25 mg PO BID 07/07/20 traMADol HCL [Ultram*] 50 mg PO TID PRN 07/07/20 Carvedilol [Coreg] 6.25 mg PO BID 07/17/20 - Past Medical/Surgical History Diabetic: Yes -: Anemia; Depression; Diabetes - IDDM; Dialysis; ESRD; GERD; Hyperlipidemi -: R AKA and Left BKA - Social History Smoking Status: Unknown if ever smoked Alcohol use: No CD- Drugs: No Caffeine use: No Place of Residence: [facility] Review of Systems is unable to be obtained Physical Examination Temp Pulse Resp BP Pulse Ox 98.6 F 91 H 18 104/51 L 96 07/18/20 16:00 07/18/20 16:00 07/18/20 19:48 07/18/20 16:00 07/18/20 19:48 General: Unresponsive HEENT: Atraumatic Neck: Supple Respiratory: Diminished Cardiovascular: No edema, Regular rate/rhythm Gastrointestinal: Soft and benign, Non-distended Musculoskeletal: No clubbing, No contractures Integumentary: No rashes, No cyanosis Neurological: Abnormal speech Blood work reviewed in the chart. Imagings Data: EXAM DESCRIPTION: CT - Head Brain Wo Cont - 07/17/2020 10:05 am CLINICAL HISTORY: CONFUSED COMPARISON: Head Brain Wo Cont dated 05/15/2020 TECHNIQUE: Axial 5 mm thick images of the head were obtained without IV contrast. All CT scans are performed using dose optimization technique as appropriate and may include automated exposure control or mA/KV adjustment according to patient size. FINDINGS: No intracranial hemorrhage, mass, edema or shift of mid-line structures. No acute infarction changes seen. No cortical edema or sulcal effacement. Atrophy changes are mild to moderate for age. Ventricles are in proportion to the volume loss. Patient has advanced for age chronic ischemic change throughout the cerebral white matter and probably in the brainstem. Old infarction changes are present at the posterior right parietooccipital junction, anterior left frontal and right subfrontal region similar to comparison. Mastoid air cells and visualized portions of the paranasal sinuses are clear. No acute bony findings. IMPRESSION: Atrophy, chronic ischemic change and old infarction changes match the April 2020 study. No acute intracranial finding identifiable. EXAM DESCRIPTION: [employer] Single View07/18/2020 8:43 am CLINICAL HISTORY: Hypertension COMPARISON: none FINDINGS: The lungs appear clear of acute infiltrate. The heart is normal size. A central venous catheter has its tip in the right atrium IMPRESSION: No acute abnormalities displayed Conclusions/Impression: A/P: Continue the current POC and Medications other than the changes listed. AM Labs PRN. Recommend daily weight. Please see the orders for complete details. ESRD -HD TIW Hypokalemia -Replete potassium prn HTN with CKD/ CHF -Hold antihypertensives Diastolic CHF, chronic -Low sodium diet DM II with CKD -RISS Moderate malnutrition -Encourage nutrition Anemia in CKD Iron deficiency -Monitor H&H -Transfuse PRBC as needed -Restart Retacrit ZOFIA/ Secondary HyperPTH Hypocalcemia -Start Vitamin D Hypomagnesemia -Replete mag prn Toxic metabolic encephalopathy, etiology unclear Thank you kindly for the consultation. Family is considering hospice.
[2020-07-18 21:20] VITALS: BP 107/63; TEMP 98.2
[2020-07-19] MEDS ORDERED: CEFTRIAXONE/SWI 1gm 1 GM/10 ML SYR IV SCH (09:00)
--- NOTE | 2020-07-19 16:02 | P.DS ---
Admission Date: 07/17/20 Discharge Date: 07/18/20 Primary Care Provider: [facility] Disposition: HOSPICE-MEDICAL FACILITY Discharge Condition: SERIOUS Reason for Admission: AMS Consultations: Nephrology-Dr. aHque Procedures: Medical problem List: Acute encephalopathy etiology unknown suspect underlying infection versus CVA versus other End-stage renal disease on hemodialysis with noncompliance Elevated troponin likely related to above Hypertension Anemia with of chronic disease Diabetes mellitus type 2 History of CVA Hyperlipidemia Depression with anxiety GERD Brief History of Present Illness: Patient was admitted for acute encephalopathy with etiology unknown. Possible infection versus CVA versus other etiology was suspected. Patient with other chronic medical problems including end-stage renal disease on hemodialysis with noncompliance, hypertension, anemia of chronic disease, diabetes mellitus type 2, history of CVA, hyperlipidemia, depression with anxiety and GERD. Hospital Course: Spoke with medical power of attorneyfriend and family members including [id number] and son. All have mentioned patient has been refusing dialysis for a while. She has also been declining in health. Current etiology of encephalopathy unknown. Suspect underlying infection currently on antibiotic therapy. Blood cultures, urine cultures obtained. Etiology could be CVA. MRI was pending. Patient requires dialysis. Other lab reviewed. Nephrology, neurology and hematology were consulted. After my discussion with the family and medical power of claim attorney, patient had expressed to them in the past that patient would want to be DO NOT RESUSCITATE. Due to her recent refusal of dialysis they feel patient is ready for hospice. Hospice was addressed in detail with the family. At this point they do not want to pursue any invasive procedure. They would much rather keep the patient comfortable and hospice at the care home. Patient was evaluated by hospice. Hospice recommended inpatient hospice. Patient transition to inpatient hospice to continue comfort measures. Vital Signs/Physical Exam: Temp Pulse Resp BP Pulse Ox 98.2 F 87 16 107/63 93 07/18/20 20:00 07/18/20 20:00 07/18/20 20:18 07/18/20 20:00 07/18/20 20:18 General: Other (See progress note for details.) Laboratory Data at Discharge: WBC 7.70 K/uL (4.3-10.9) D 07/18/20 05:55 Hgb 8.9 g/dL (12.0-15.0) L 07/18/20 05:55 Hct 27.0 % (36.0-45.0) L 07/18/20 05:55 Plt Count 24 K/uL (152-406) L* D 07/18/20 05:55 PT 12.6 SECONDS (9.5-12.5) H 07/17/20 10:23 INR 1.09 07/17/20 10:23 APTT 26.1 SECONDS (24.3-36.9) 07/17/20 10:23 Sodium 141 mmol/L (136-145) 07/18/20 05:55 Potassium 3.6 mmol/L (3.5-5.1) 07/18/20 05:55 BUN 34 mg/dL (7-18) H 07/18/20 05:55 Creatinine 3.15 mg/dL (0.55-1.3) H 07/18/20 05:55 Glucose 125 mg/dL (74-106) H 07/18/20 05:55 Magnesium 1.7 mg/dL (1.8-2.4) L D 07/17/20 10:23 Total Bilirubin 0.8 mg/dL (0.2-1.0) 07/17/20 10:23 AST 28 U/L (15-37) 07/17/20 10:23 ALT 14 U/L (12-78) 07/17/20 10:23 Alkaline Phosphatase 90 U/L (45-117) 07/17/20 10:23 Troponin I 2.81 ng/mL (0.0-0.045) H* 07/18/20 05:55 Triglycerides 215 mg/dL (<150) H 07/17/20 19:35 Cholesterol 115 mg/dL (<200) 07/17/20 19:35 HDL Cholesterol 39 mg/dL (40-60) L 07/17/20 19:35 Cholesterol/HDL Ratio 2.95 07/17/20 19:35 Lipase 17 U/L (73-393) L 07/17/20 10:23 Home Medications: Albuterol Neb [Proventil 0.083% Neb Soln] 2.5 mg NEB [id number] PRN amp 07/07/20 Amlodipine Besylate 10 mg PO DAILY 07/07/20 Bromfenac Sodium [Prolensa] 1 drop OP BID 07/07/20 Clopidogrel Bisulfate [Plavix*] 75 mg PO DAILY 07/07/20 Dorzolamide/Timolol/Pf [Dorzolamide-Timolol 2%-0.5%] 1 each OP BID 07/07/20 Duloxetine HCl [Drizalma Sprinkle] 60 mg PO BID 07/07/20 Fluocinonide/Emollient Base [Fluocinonide-E 0.05% Cream] 1 david TOP BID 07/07/20 Folic Acid 0.8 mg PO DAILY 07/07/20 Gabapentin [Neurontin*] 600 mg PO TID 07/07/20 Insulin Glargine,Hum.rec.anlog [Lantus Solostar] 20 unit SQ BEDTIME 07/07/20 Melatonin [Melatonin*] 10 mg PO BEDTIME 07/07/20 Pantoprazole [Protonix Tab*] 40 mg PO DAILY 07/07/20 Quetiapine [Seroquel*] 25 mg PO BID 07/07/20 Sevelamer Carbonate [Renvela*] 800 mg PO TIDWM 07/07/20 Trazodone HCl 50 mg PO BEDTIME 07/07/20 carvediloL [Coreg*] 6.25 mg PO BID 07/07/20 traMADol HCL [Ultram*] 50 mg PO TID PRN 07/07/20 Carvedilol [Coreg] 6.25 mg PO BID 07/17/20 Physician Discharge Instructions: Patient to enter inpatient hospice Diet: Comfort me Activity: Bedrest Followup: NONE,NONE [Primary Care Provider] - Time spent managing pt's care (in minutes): 55
--- NOTE | 2020-07-20 14:12 | EEG ---
CHART: [id number] TEST ID#: [id number] DATE OF STUDY: 07/18/2020 THE EEG WAS RECORDED [*] ON A 17 CHANNEL MACHINE. ELECTRODES WERE APPLIED IN THE USUAL MANNER USING THE INTERNATIONAL 10-20 SYSTEM. THE EEG CONSISTS OF 1-2 HZ MODERATE TO HIGH VOLTAGE GENERALIZED CONTINIOUS SPIKE AND SLOW WAVE DISCHARGES WITH SLIGHT VARIATION IN AMPLITUDE AND SYNCHRONY. SLEEP DID NOT OCCUR. HYPERVENTILATION WAS NOT PERFORMED. PHOTIC STIMULATION PRODUCED NO DRIVING BILATERALLY. IMPRESSION: THIS IS A MARKEDLY ABNORMAL EEG DUE TO NEAR CONTINUOUS DIFFUSELY EXPRESSED MODERATE TO HIGH VOLTAGE EPIPEPTIFORM ACTIVITY. THIS ACTIVITY IS CONSISTENT WITH STATUS EPILEPLICUS.
== END 2020-07-18 21:20 | disposition hospice, inpatient (51) | DRG 64 ==
LOC: ER 09:47 → ERHOLD 16:29 → 4TH 17:18
PROVIDERS: ADMIT Family Medicine; ATTEND Family Medicine
DX: I63.9 Cerebral infarction, unspecified (principal); G92 Toxic encephalopathy; N18.6 End stage renal disease; I13.2 Hypertensive heart and chronic kidney disease with heart failure and with stage 5 chronic kidney disease, or end stage renal disease; I50.32 Chronic diastolic (congestive) heart failure; E44.0 Moderate protein-calorie malnutrition; E11.22 Type 2 diabetes mellitus with diabetic chronic kidney disease; E03.9 Hypothyroidism, unspecified; E78.5 Hyperlipidemia, unspecified; K21.9 Gastro-esophageal reflux disease without esophagitis; D69.6 Thrombocytopenia, unspecified; E87.6 Hypokalemia; D63.1 Anemia in chronic kidney disease; F41.8 Other specified anxiety disorders; D50.9 Iron deficiency anemia, unspecified; E21.1 Secondary hyperparathyroidism, not elsewhere classified; N25.0 Renal osteodystrophy; F03.90 Unspecified dementia, unspecified severity, without behavioral disturbance, psychotic disturbance, mood disturbance, and anxiety; R77.8 Other specified abnormalities of plasma proteins; Z66 Do not resuscitate; Z68.35 Body mass index [BMI] 35.0-35.9, adult; Z88.8 Allergy status to other drugs, medicaments and biological substances; Z79.4 Long term (current) use of insulin; Z88.1 Allergy status to other antibiotic agents; Z79.02 Long term (current) use of antithrombotics/antiplatelets; Z79.899 Other long term (current) drug therapy; Z89.512 Acquired absence of left leg below knee; Z89.611 Acquired absence of right leg above knee; Z99.2 Dependence on renal dialysis; Z91.15 Patient's noncompliance with renal dialysis; Z86.73 Personal history of transient ischemic attack (TIA), and cerebral infarction without residual deficits; Z20.822 Contact with and (suspected) exposure to COVID-19
CPT/HCPCS: 36415; 70450; 71045; 80048; 80061; 80076; 82550; 82553; 82607; 82728; 82947; 83010; 83036; 83540; 83605; 83615; 83690; 83735; 83880; 84145; 84466; 84484; 85025; 85610; 85652; 85730; 86140; 87040; 87077; 87186; 87205; 93005; 95816; 99285; C9113; J2270; J3411; J3480; J7050; U0003

== ENCOUNTER 2020-07-18 21:31 | Inpatient (IN) | payer OTHER ==
[2020-07-18] MEDS ORDERED: MORPHINE 2 MG/ML SYR IV PRN (22:03)
[2020-07-18] MEDS ORDERED: ACETAMINOPHEN 650MG/RECT SUPP PR PRN (22:05)
[2020-07-18] MEDS ORDERED: LORazepam 2 MG/ML VIAL IV PRN (22:05)
[2020-07-18] MEDS ORDERED: ONDANSETRON 4 MG/2 ML VIAL IV PRN (22:05)
[2020-07-18] MEDS ORDERED: BISACODYL 10 MG RECTAL SUPP PR PRN (22:05)
[2020-07-18] MEDS: MORPHINE 2 MG/ML SYR IV SCH (23:00)
[2020-07-19] MEDS: LORazepam 2 MG/ML VIAL IV SCH ×4 (01:28→18:06)
[2020-07-19] MEDS: MORPHINE 2 MG/ML SYR IV SCH ×6 (03:29→23:20)
--- NOTE | 2020-07-19 16:24 | CON ---
Date of Consultation: 07/18/2020 Reason For Consultation: Altered mental status and elevated troponin. History Of Present Illness: Ms. Jones is a 65-year-old. She is a do not resuscitate. Has a his tory of thrombocytopenia and was admitted by Dr. Meyer. She has a history of COPD, hypertension, saran nary artery disease, neuropathy, diabetes, gastroesophageal reflux disease. No chest pain reported. The patient has positive troponin. Again, she is a do not resuscitate. Past Medical History: As stated above. Allergies: NONE KNOWN. Social History: Unobtainable by the patient. Family History: Unobtainable by the patient. Medications: Include amlodipine, inhalers, Plavix, carvedilol, folic acid, Neurontin, melatonin, ins ulin, Protonix, Renvela. Physical Examination: Vital Signs: Her blood pressure was 176/47. Her pulse was 85. She was in sinus rhythm, afebrile. Her O2 saturation is 90%. Chest: Clear. Cardiac: Revealed a regular rhythm and rate with an aortic sclerosis murmur. Abdomen: Benign. Extremities: Revealed no clubbing, cyanosis, or edema. Diagnostic Data: Positive for slightly elevated troponin. Impression And Plan: Elevated troponin, most likely secondary to overall functional status and hypot ension. There are no acute changes on EKG. There is no chest pain reported. The patient is a do no t resuscitate. I have no intention of doing any further cardiac workup on her at this point. Continue the regimen that she is on and continue care as per Dr. Meyer. SVETA/RONAK Voice ID: [id number] Report ID: [id number]
[2020-07-20] MEDS: LORazepam 2 MG/ML VIAL IV SCH ×2 (01:08→06:22)
[2020-07-20] MEDS: MORPHINE 2 MG/ML SYR IV SCH ×2 (03:36→07:06)
[2020-07-20 08:55] VITALS: BP 54/33; TEMP 98.3
[2020-07-20 10:32] VITALS: O2SAT 93
[2020-07-21] MEDS ORDERED: SCOPOLAMINE HYDROBROMIDE PATCH TD SCH (09:00)
== END 2020-07-20 11:40 | disposition expired | DRG 951 ==
LOC: 4TH 21:31
PROVIDERS: ADMIT Internal Medicine Hematology & Oncology; ATTEND Internal Medicine Hematology & Oncology
DX: Z51.5 Encounter for palliative care (principal)
CPT/HCPCS: J2270